=== PATIENT | male | born 1955 | race Caucasian/White ===

== ENCOUNTER 2022-10-28 08:55 | Outpatient (CLI) | payer MEDICARE, SELFPAY | END 2022-10-28 08:56 | disposition home or self-care (01) | LOC: NFLDREF 22:53 | PROVIDERS: PCP Family Medicine; Referring Provider Family Medicine; Visit Provider Family Medicine | DX: U07.1 COVID-19 (principal) | CPT/HCPCS: 80048 ==

== ENCOUNTER 2023-05-26 08:35 | Outpatient (CLI) | payer MEDICARE, SELFPAY ==
--- NOTE | 2023-05-26 10:20 | W.ANESCHARGE ---
Anesthesia Charges Start Date/Time Anesthesia Start Date: 05/26/23 Anesthesia Start Time: 09:35 Stop Date/Time Anesthesia Stop Date: 05/26/23 Anesthesia Stop Time: 10:20
== END 2023-05-26 08:36 | disposition home or self-care (01) ==
LOC: OP CLINIC 08:36
PROVIDERS: PCP Family Medicine; Visit Provider Surgery
DX: Z12.11 Encounter for screening for malignant neoplasm of colon (principal); K57.30 Diverticulosis of large intestine without perforation or abscess without bleeding
CPT/HCPCS: 45378; 812; J2704

== ENCOUNTER 2024-01-31 18:55 | Emergency (ER) | payer MEDICARE, SELFPAY ==
[2024-01-31] VITALS (12 sets, daily range): BP systolic 125–157; BP diastolic 73–96; PULSE 83–90; RESP 20; TEMP 36.3; O2SAT 94–97; BMI 36.6
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
[2024-01-31 19:16] LABS: Basophils Percent Auto 0.6 % (0.0-3.0); Hematocrit 47.5 % (37.0-53.0); Hemoglobin* 15.6 gm/dL (13.5-17.5); Immature Granulocytes Pct Auto 0.3 %; Lymphocytes Percent Auto 46.5 % (20-44); Mean Corpuscular HGB Conc 33 gm/dL (32-36); Mean Corpuscular Hemoglobin 31 pg (26-34); Mean Corpuscular Volume 94 fL (80-100); Monocytes Percent Auto 9.1 % (0.0-11.0); Neutrophils Percent Auto 38.5 % (42.0-72.0); Platelet Count* 218 K/uL (140-440); RDW Coefficient of Variation % 12.7 % (11.5-15.5); Red Blood Count 5.04 m/uL (4.30-5.90); White Blood Count* 12.02 K/uL (4.50-11.00)
[2024-01-31 19:18] LABS: Slide Review Reflex No
[2024-01-31 19:30] LABS: Chloride* 106 mmol/L (96-114)
[2024-01-31 19:31] LABS: Potassium* 4.1 mmol/L (3.6-5.1); Sodium* 138 mmol/L (135-149)
[2024-01-31 19:33] LABS: Creatinine* 1.3 mg/dL (0.5-1.5); Est. Creatinine Clearance* 59.69; Estimated Glomerular Filt Rate 60 ml/min
[2024-01-31 19:34] LABS: Anion Gap 9 mEq/L (7-15); Blood Urea Nitrogen* 22 mg/dL (7-30); Carbon Dioxide* 23 mmol/L (20-32); Glucose* 114 mg/dL (60-115)
[2024-01-31 19:46] LABS: Troponin I* < 0.01 ng/mL (0.01-0.04)
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
--- OUTSIDE RECORDS SUMMARY | 2024-01-31 20:37 | XMS_ITS | Clinical Summary ---
Author Organization [employer] [facility] [employer] [facility] Address [place], [place] [address] Care Team Providers Care Transmission Repairer Name Role Phone Pcp, No Primary Care Provider Unavailabl e Allergies No known active allergies Medications Medication Sig Dispensed Refills Start Date End Date Status MULTIVITAMIN TAB take 1 tablet by oral route once daily with food 0 12/25/2008 Active Active Problems Problem Noted Date Diagnosed Date Hyperplastic colon polyp 04/21/2013 Overview: Colonoscopy 04/2013 polyp repeat in 10 years Immunizations Name Administration Dates Next Due Td (Age >=7 Years) 11/23/1998 Tdap 12/25/2008 Family History Medical History Relation Name Comments Heart Disease Father Good Health Maternal Grandmother brain t umor Cancer-colon Maternal Uncle Other Mother myeloma Heart Disease Paternal Grandmother chf Relation Name Status Comments Father Maternal Grandmother Maternal Uncle Mother Alive Paternal Grandmother Social History Tobacco Use Types Packs/Day Years Used Date Smoking Tobacco: Never Smokeless Tobacco: Never Tobacco Cessation:Counseling Given: Yes Alcohol Use Standard Drinks/Week Comments No 0 (1 standard drink = 0.6 oz pur e alcohol) Sex and Gender Information Value Date Recorded Sex Assigned at Not on file Gender Identity Not on file Sexual Orientation Not on file Obstetrics History Last Filed Vital Signs Vital Sign Reading Time Taken Comments Blood Pressure 115/78 04/19/2013 11:22 AM CDT Pulse 61 04/19/2013 11:22 AM CDT Temperature 36.9 ??C (98.4 ??F) 12/25/2008 8:16 AM CD T Respiratory Rate - - Oxygen Saturation 93% 04/19/2013 11:22 AM CDT Inhaled Oxygen Concentration - - Weight 125.2 kg (276 lb) 03/04/2013 8:35 AM CDT Height 182.9 cm (6') 03/04/2013 8:35 AM CDT Body Mass Index 37.43 03/04/2013 8:35 AM CDT Plan of Treatment Health Maintenance Due Date Last Done Comments Depression screening for age 12+ 1967 BMI (ht and wt on same day) for age 18+ 1973 Hepatitis C screening for age 18-79 1973 Zoster (shingles) series for age 50+ (1 of 2) 2005 Lipids for age 45-75 03/04/2018 03/04/2013, 01/24/20 09 Tetanus booster 12/25/2018 12/25/2008, 11/23/1998 Pneumococcal series for age 65+ (1 of 1 - PCV) 2020 COVID-19 vaccine series ( - 2022-24 season) 2023 Colonoscopy through age 75 04/19/2023 04/19/2013, Influenza for age 65+ 03/20/2024 Tdap Completed 12/25/2008 Procedures Procedure Name Priority Date/Time Associated Diagnosis Comments LIPID PANEL W REFLEX MEASURED LDL Routine 03/04/2013 9:10 AM CDT Screening for ischemic heart disease from Last 3 Months or Most Recently Relevant to Health Maintenance Results * (ABNORMAL) LIPID PANEL W REFLEX MEASURED LDL (03/04/2013 9:10 AM CDT) CHOLESTEROL,TOTAL 220(H) 100 - 199 mg/dL 03/04/2013 9:51 AM T [facility] TRIGLYCERIDES 106 <150 mg/dL 03/04/2013 9:51 AM T [facility] HDL CHOLESTEROL 43 >40 mg/dL 3 9:51 AM T [facility] NON-HDL CHOLESTEROL 177(H) <145 mg/dl 03/04/2013 9:51 AM [facility] CHOL/HDL RATIO 5.12(H) <4.50 03/04/2013 9:51 AM [facility] LDL CHOLESTEROL 156(H) <=130 mg/dL 03/04/2013 9:51 AM CDT [facility] PATIENT STATUS FASTING 03/04/2013 9:51 AM CDT [facility] Blood specimen (specimen) BLOOD SPECIMEN / Unknown Venipuncture / Unknown 03/04/2013 9:10 AM CDT 03/04/2013 9:15 AM CDT Micah Reid MD CHEMISTRY [facility] [address] [place] [address] from Last 3 Months or Most Recently Relevant to Health Maintenance Care Teams Transmission Repairer Relationship Specialty Start Date End Date Pcp, No . PCP - General 12/10/20
== END 2024-01-31 20:47 | disposition home or self-care (01) ==
PROVIDERS: Emergency Provider Family Medicine; PCP Family Medicine
DX: S22.31XA Fracture of one rib, right side, initial encounter for closed fracture (principal); S20.419A Abrasion of unspecified back wall of thorax, initial encounter; V29.39XA Other motorcycle (driver) (passenger) injured in unspecified nontraffic accident, initial encounter; S06.0X1A Concussion with loss of consciousness of 30 minutes or less, initial encounter
CPT/HCPCS: 36415; 70450; 71260; 72125; 72128; 72131; 74177; 80048; 84484; 85025; 93005; 94761; 99284; 99291; G0390; Q9967

== ENCOUNTER 2024-06-02 08:15 | Outpatient (RCR) | payer MEDICARE, SELFPAY ==
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
== END 2024-06-02 14:57 | disposition home or self-care (01) ==
PROVIDERS: PCP Family Medicine; Visit Provider Physician Assistant Surgical
DX: S82.874A Nondisplaced pilon fracture of right tibia, initial encounter for closed fracture (principal); M16.11 Unilateral primary osteoarthritis, right hip; Z96.641 Presence of right artificial hip joint; R53.1 Weakness; R26.89 Other abnormalities of gait and mobility; Z51.89 Encounter for other specified aftercare
CPT/HCPCS: 97110; 97140; 97162

== ENCOUNTER 2024-06-13 08:37 | Day surgery (SDC) | payer MEDICARE, SELFPAY ==
[2024-06-13] VITALS (20 sets, daily range): BP systolic 112–149; BP diastolic 63–84; PULSE 57–71; RESP 12–16; TEMP 35.9–37; O2SAT 91–97; BMI 38.0
[2024-06-13] MEDS: MIDAZOLAM HCL 1 MG/ML inj IVP (07:34)
--- OUTSIDE RECORDS SUMMARY | 2024-06-13 08:41 | XMS_ITS | Clinical Summary ---
Author Organization [employer] [facility] [employer] Address [place], [place] [address] Care Team Providers Care Medical Safety Director Name Role Phone Pcp, No Primary Care Provider Unavailabl e Allergies No known active allergies Medications Medication Sig Dispensed Refills Start Date End Date Status MULTIVITAMIN TAB take 1 tablet by oral route once daily with food 0 12/25/2008 Active Active Problems Problem Noted Date Diagnosed Date Hyperplastic colon polyp 04/21/2013 Overview (04/21/2013): Colonoscopy 04/2013 polyp repeat in 10 years [...] 61 04/19/2013 11:22 AM CDT Temperature 36.9 C (98.4 F) 12/25/2008 8:16 AM CDT Respiratory Rate - - Oxygen Saturation 93% [...] 65+ (1 of 1 - PCV) 2020 Colonoscopy through age 75 04/19/2023 04/19/2013, COVID-19 vaccine series (2023- season) 2024 Influenza for age 65+ 03/20/2024 Tdap Completed [...] - 199 mg/dL 03/04/2013 9:51 AM T [facility] TRIGLYCERIDES 106 <150 mg/dL 03/04/2013 9:51 AM T [facility] HDL CHOLESTEROL 43 >40 mg/dL 3 9:51 AM [facility] NON-HDL CHOLESTEROL 177(H) <145 mg/dl 03/04/2013 9:51 AM [facility] CHOL/HDL RATIO 5.12(H) <4.50 03/04/2013 9:51 AM [facility] LDL CHOLESTEROL 156(H) <=130 mg/dL 03/04/2013 9:51 AM CDT [facility] PATIENT STATUS FASTING 03/04/2013 9:51 AM CDT [facility] Blood specimen (specimen) BLOOD SPECIMEN / Unknown Venipuncture / Unknown 03/04/2013 9:10 AM CDT 03/04/2013 9:15 AM CDT Micah Reid MD CHEMISTRY [facility] [address] [place] [address] from Last 3 Months or Most Recently Relevant to Health Maintenance Care Teams Medical Safety Director Relationship Specialty Start Date End Date Pcp, No . PCP - General 12/10/20
--- NOTE | 2024-06-13 09:10 | W.PM.H&PU ---
History & Physical Update History & Physical Update H&P Reviewed and patient assessed: No changes noted
[2024-06-13] MEDS: ACETAMINOPHEN 500 MG TABLET 1000 MG PO ×3 (09:52→22:15)
[2024-06-13] MEDS: SODIUM CHLORIDE 0.9 % (FLUSH) 10 ML SYRINGE IVF (09:53)
[2024-06-13] MEDS: LACTATED RINGERS 1000 ML 1,000 ML 100 ML IV (09:53)
[2024-06-13] MEDS: OXYCODONE (CR) 10 MG TAB.ER.12H PO (09:53)
[2024-06-13] MEDS: fentaNYL 100 MCG/2 ML inj IVP (10:19)
--- NOTE | 2024-06-13 10:38 | SUR.PREOP ---
TIME?OUT:?1019 PT/RN/MDA?VERIFICATION?OF?SURGICAL?SITE,?PROCEDURE,?AND?CONSENT OBTAINED?PRIOR?TO?INVASIVE?PROCEDURE.
[2024-06-13] MEDS: CEFAZOLIN 2 GM in 0.9 % SODIUM CHLORIDE Mini-bag 100 ML IVPB (10:42)
--- NOTE | 2024-06-13 10:45 | CRLHL7_ITS ---
For Patients: As a result of the Cures Act, medical imaging exams and procedure reports are released immediately into your electronic medical record. You may view this report before your referring provider. If you have questions, please contact your health care provider. Indication: Hip replacement surgery Technique: AP hip fluoroscopic image. Fluoroscopy time 28.6 seconds. Findings/Impression: Hardware from a right total hip arthroplasty is in satisfactory position. Dictated by Micah Glass MD @ 06/14/2024 8:42:41 AM (Electronically Signed)
--- NOTE | 2024-06-13 10:45 | CRLHL7_ITS ---
For Patients: As a result of the Cures Act, medical imaging exams and procedure reports are released immediately into your electronic medical record. You may view this report before your referring provider. If you have questions, please contact your health care provider. Indication: POST OP RIGHT HIP Technique: AP hip centered pelvis and lateral view right hip Findings/Impression: Hardware from a right total hip arthroplasty is in satisfactory position. Bone alignment is normal. No sign of acute fracture. Postop changes are within normal limits. Dictated by Micah Glass MD @ 06/14/2024 8:48:43 AM (Electronically Signed)
[2024-06-13] MEDS: TRANEXAMIC ACID 100 MG/ML INJ 1000 MG IV (10:48)
--- NOTE | 2024-06-13 11:01 | P.NB_ITS ---
Nerve Block Nerve Block Time Seen by Provider: 10:20 Date Seen: 06/13/24 Type of block requested by surgeon for post-operative analgesia: DONA/LFCN Side: right Time out performed: Yes Verification of patient name: Yes Verification of date of : Yes Site marking: site marked Name of person performing procedure: Raz Continuous monitoring Was continuous monitoring of O2 sat, B/P, shelter monitor, recorded every 15 minutes?: Yes Procedure Checklist: sterile prep, needles and gloves Ultrasound guided. Images saved: Yes Medications given in 5ml increments after negative aspiration: Ropivicaine %: 0.5 mL: 30 Needle gauge: 20 Precedex (mcg): 25 Patient tolerated procedure well: Yes Additional comments: Needle noted below psoas tendon needle noted adjacent to LFCN Block Charges Block Charge (with Pro Fee): Other Periph Nerve Block Use of Ultrasound Machine for Block: Yes- US Guidance/pain block
--- NOTE | 2024-06-13 11:02 | W.ANESCHARGE ---
Anesthesia Charges Start Date/Time Anesthesia Start Date: 06/13/24 Anesthesia Start Time: 10:25 Stop Date/Time Anesthesia Stop Date: 06/13/24 Anesthesia Stop Time: 12:57
--- NOTE | 2024-06-13 11:02 | SUR.OPER ---
PATIENT QUESTIONS ANSWERED SATISFACTORILY PREOPERATIVELY. PATIENT BROUGHT TO OR #2 PER CART AFTER ADMINISTRATION OF A BLOCK. Patient positioned supine on OR #2 bed. The perioperative team supported arms bilaterally on arm boards. Final approval of positioning by surgeon.
--- NOTE | 2024-06-13 12:03 | PM.ORPRC ---
Procedure Note Date of procedure: 06/13/24 Procedure: PREOPERATIVE DIAGNOSIS: 1. Right hip osteoarthritis, severe, primary POSTOPERATIVE DIAGNOSIS: 1. Right hip osteoarthritis, severe, primary PROCEDURE: 1. Right total hip arthroplasty-anterior approach 2. [id number] - intraoperative fluoroscopy up to 1 hour. SURGEON: Srinath Boone MD. SPACE CONTROL SUPERVISOR: Jasen Pastor PA-C; LORRAINE Burciaga - Of note, a skilled assistant banquet manager was critical for this case to aid in patient positioning, tissue retraction, limb manipulation/positioning, and closure. ANESTHESIA: General endotracheal anesthetic EBL: 250 mL IMPLANTS: DePuy J&J uncemented total hip [place] cup size 56, hole eliminator, +4 neutral liner Actis stem, high offset, size 9 +1.5 mm ceramic 36 mm head COMPLICATIONS: None evident INDICATIONS: The patient is a pleasant 68-year-old male who has experienced severe right hip pain and difficulty bearing weight. Workup included x-rays which revealed severe osteoarthrosis in the hip. Given the deformity, the dysfunction, and the pain, as well as the failure of nonoperative management, recommendation was made for surgery. FINDINGS: Full-thickness chondral loss diffusely throughout the femoral head and acetabulum. Osteophytes around the femoral head/neck junction and perimeter of the acetabulum. Large effusion upon entering the joint. Capsule was significantly adhesed to the femoral neck. DESCRIPTION OF PROCEDURE: Following a thorough discussion of risks, benefits, and alternatives consent was obtained and the right hip was marked. The patient was brought to the operating room and placed supine on the operating table. Induction of anesthesia was undertaken. 3 g IV Ancef and 1 g tranexamic acid was administered within 1 hr of incision preoperatively. Proper time-out was performed identifying proper patient, site, procedure. The operative extremity was prepped and draped in the appropriate sterile fashion using ChloraPrep after the patient was positioned on the [place] table with head in neutral alignment and all bony prominences well padded. C-arm fluoroscopic imaging was utilized to confirm proper pelvis rotation and position, and to get true AP films of both the contralateral left, and the affected right hip. This is for comparison. A longitudinal incision was made starting approximately 1 cm distal to the ASIS, and 3-4 cm lateral. The incision was extended distally aiming toward the lateral border the patella. Sharp incision through skin and bovie cautery through the subcutaneous tissue allowed identification of the TFL fascia. This was sharply divided, and the fascia bluntly released from the muscle fibers as we dissected medial. Upon coming to the medial border, we were able to retract the TFL laterally, and penetrated the deeper fascia and identify the crossing circumflex vessels. These were ligated/cauterized. The rectus was elevated from the capsule, and retractors placed laterally and medially along the femoral neck to help with visualization of the capsule. We then performed an inverted T capsulotomy. The capsule was tagged for later repair. Retractors were placed inside the capsule. The femoral neck was visualized after releasing medially down to the lesser trochanter, along the saddle laterally, and up onto the acetabulum. The femoral neck cut was made in line with our preoperative templating. The head was removed in a single piece, and sized. We turned our attention to acetabular preparation. Initially, the labrum was resected from around the perimeter, the pulvinar was excised, allowing us to visualize the false wall. We started the reaming with a 43 mm reamer. This was medialized down to the true wall. We then enlarged our reamers sequentially up to one size less than the selected cup size. We trialed at the same size and found it to have an excellent fit. The selected cup was then opened, inserted, and impacted in line with the goal of 40? of abduction, and 20-25? of anteversion. This was confirmed on C-arm fluoroscopic imaging to be in the appropriate/goal position. Once the cup was placed we placed a hole eliminator and a liner consistent with preop planning. Attention was turned to the femoral preparation. The limb was extended, externally rotated, and adducted. The posteromedial capsule was released, as retractors were placed allowing excellent access to the proximal femur. Initially a box blank machine operator helper was followed by canal finder followed by various broaches. We broached sequentially up to the size noted above, found it to have excellent rotational control, and trialing various heads and necks, revealed that appropriate neck offset, and the above noted head size provided the greatest stability, and oriental orthodox of length, and offset. C-arm fluoroscopic imaging confirmed position of the stem, as well as leg lengths, which were compared with the pre procedure all fluoroscopic images. Trial implants were removed, the real femoral stem inserted, as was the appropriate head. After reducing, the leg was placed through range of motion and stability was confirmed anterior, posterior, and lateral. A 3 min Betadine soak was then performed, and thorough irrigation with normal saline followed. Closure of the capsule was performed with #1 PDS. Bleeding was confirmed to be controlled at this stage, and the TFL fascia was closed with #0 strata fix. Subcutaneous, and subcuticular closure was performed with 2-0 Vicryl and 4-0 Monocryl, respectively. Dressings were applied, and the patient was awoken from anesthesia and transferred the PACU in stable condition. A skilled assistant banquet manager was critical for this case to aid in patient positioning, tissue retraction, acetabular and proximal femoral exposure, limb manipulation/positioning, dislocation/relocation, patient safety, and closure. PLAN: 1. Weight bear as tolerated operative extremity. 2. 23 hr perioperative antibiotics. 3. Ice. 4. PT/OT consults for ambulation assistance/mobility education. 5. Social work consult for discharge planning. 6. DVT prophylaxis with at SCDs and Xarelto x5 days followed by aspirin for a total of 1 month..
--- NOTE | 2024-06-13 13:03 | W.ANESCHARGE ---
Anesthesia Charges Start Date/Time Anesthesia Start Date: 06/13/24 Anesthesia Start Time: 10:25 Stop Date/Time Anesthesia Stop Date: 06/13/24 Anesthesia Stop Time: 12:57
[2024-06-13] MEDS: HYDROmorphone 0.5 mg/0.5 ml inj IVP (14:40)
--- NOTE | 2024-06-13 15:43 | P.IMCN_ITS ---
Date of Consult Patient: [facility] Patient Consult date: 06/13/24 Requesting Physician: Orthopedics Primary Care Provider: Louis Dean MD Consult Narrative Reason for consult: hyperlipidemia Narrative: Leland Valenzuela is a 68 year old male with h/o hyperlipidemia and idiopathic peripheral neuropathy who underwent an elective RTHA by Dr. Boone for severe right hip osteoarthritis. His , Liza, is with him and answers for him. He is sleepy, but able to answer when I ask him to. Liza has a lot of questions about his pain control, monitors, his alertness level, etc. Review of Systems Status of ROS: Reports: 6 or more systems reviewed and unremarkable except as noted in History and below PFSH [facility] Medical History (Updated 06/13/24 @ 16:24 by Crystal Rob MD) Closed fracture of distal end of tibia ?S82.309A - Unspecified fracture of lower end of unspecified tibia, initial encounter for closed fracture (ICD-10) Hyperplastic colon polyp (04/21/13) ?K63.5 - Polyp of colon (ICD-10) Erectile dysfunction ?N52.9 - Male erectile dysfunction, unspecified (ICD-10) COVID-19 ?U07.1 - COVID-19 (ICD-10) Obesity ?E66.9 - Obesity, unspecified (ICD-10) Idiopathic peripheral neuropathy ?G60.9 - Hereditary and idiopathic neuropathy, unspecified (ICD-10) Hyperlipidemia ?E78.5 - Hyperlipidemia, unspecified (ICD-10) Surgical History (Updated 06/13/24 @ 16:16 by Crystal Rob MD) S/P total right hip arthroplasty (06/13/24) ?Z96.641 - Presence of right artificial hip joint (ICD-10) History of total right hip replacement (06/13/24) ?Z96.641 - Presence of right artificial hip joint (ICD-10) Social History (Updated 06/13/24 @ 16:18 by Crystal Rob MD) Narrative: , Mary. Retired from [employer], various other employment. Lifelong nonsmoker. Denies EtOH and recreational drugs. What is your current living situation?: I presently have a place to live Problems where you live: no known problems In the past 12 months, utilities in danger of being shut off: no In the past 12 mos, have been you worried that your food would run out before you had money to buy more?: never true In the past 12 mos, the food you bought just didn't last and you didn't have money to buy more?: never true Smoking Status: Never smoker Do you use any of these nicotine containing products: None Second hand tobacco smoke exposure: No How often do you have a drink containing alcohol: never AUDIT-C Alcohol total score: 0 Non-prescribed substance use: denies use Caffeine: Yes (2c/day) How often does anyone, including family, friends and others, physically hurt you : never How often does anyone, including family, friends and others, insult or talk down to you: never How often does anyone, including family, friends and others, threaten you with harm: never How often does anyone, including family, friends and others, scream or curse at you: never service: No Meds Home Medications and Allergies Home Medications ?Medication ?Instructions ?Recorded ?Confirmed ?Type multivitamin (Multiple Vitamins 1 tab PO QDAY 06/19/22 06/13/24 History tablet) simvastatin 40 mg tablet 40 mg PO QDAY 10/27/22 06/13/24 History aspirin 325 mg tablet 650 mg PO Q4-6H PRN 03/08/24 06/13/24 History Allergies Allergy/AdvReac Type Severity Reaction Status Date / Time No Known Drug Allergies Allergy Verified 06/13/24 08:57 Exam Narrative: Exam Narrative: General: No acute distress. Sleepy, easily arousable, oriented x3. HEENT: Normocephalic atraumatic, pupils equally round and reactive to light and accommodation. Oropharynx clear. Mucous membranes are moist. No cervical lymphadenopathy, thyromegaly or carotid bruits. No JVD. Cardiovascular: Regular rate and rhythm. No murmurs, gallops, or rubs. Chest: No increased work of breathing. Clear to auscultation bilaterally. No crackles or wheezes. Abdomen: Bowel sounds present. Soft, nondistended, nontender. No hepatosplenomegaly or masses. Extremities: Right hip bandage is clean, dry, and intact. No edema, no cyanosis or clubbing. Skin: No jaundice, no pallor, no rashes on visible skin. Const: Vital Signs, click to edit/add: Vital Signs - 24 hr 06/13/24 09:15 06/13/24 10:25 06/13/24 12:53 Temperature 98.1 F 97.3 F L Pulse Rate 61 61 62 Respiratory Rate 16 16 12 Blood Pressure 149/79 H 133/84 123/66 Pulse Oximetry 96 96 94 Oxygen Delivery Me thod OxyMask Oxygen Flow Rate 10 Fraction of Inspir ed Oxygen 06/13/24 13:00 06/13/24 13:05 06/13/24 13:10 Temperature 97.4 F L Pulse Rate 60 66 65 Respiratory Rate 14 14 12 Blood Pressure 113/67 115/71 117/74 Pulse Oximetry 95 95 94 Oxygen Delivery Me thod OxyMask OxyMask OxyMask Oxygen Flow Rate 10 10 10 Fraction of Inspir ed Oxygen 06/13/24 13:15 06/13/24 13:20 06/13/24 13:24 Temperature 97.6 F Pulse Rate 66 65 64 Respiratory Rate 16 16 14 Blood Pressure 113/73 114/69 118/64 Pulse Oximetry 94 93 91 Oxygen Delivery Me thod OxyMask Room Air Room Air Oxygen Flow Rate Fraction of Inspir ed Oxygen 6 06/13/24 13:24 06/13/24 13:25 06/13/24 13:45 Temperature 97.6 F 97.4 F L 96.7 F L Pulse Rate 69 69 69 Respiratory Rate 12 14 16 Blood Pressure 118/64 119/68 112/68 Pulse Oximetry 91 93 92 Oxygen Delivery Me thod Room Air Room Air Nasal Cannula Oxygen Flow Rate 2 Fraction of Inspir ed Oxygen 06/13/24 14:00 06/13/24 14:15 06/13/24 14:30 Temperature 98.0 F 98.0 F 98.6 F Pulse Rate 69 69 69 Respiratory Rate 16 14 14 Blood Pressure 122/67 115/68 121/68 Pulse Oximetry 93 91 94 Oxygen Delivery Me thod Nasal Cannula Nasal Cannula Nasal Cannula Oxygen Flow Rate 2 2 2 Fraction of Inspir ed Oxygen Assessment and Plan Assessment and plan (1) S/P total right hip arthroplasty: Problem comment: - 06/13/24 Dr. Boone - routine post op cares - pain control adequate, but patient is very sleepy with mild O2 desaturations into the high 80% on RA while dozing. Suspect underlying undiagnosed ADELE. Will add celecoxib to hopefully allow for use of fewer narcotics. - VTE prophylaxis with low dose rivaroxaban. Status: Acute (2) Osteoarthritis of right hip: Problem comment: Severe, [id number] Status: Chronic (3) Closed fracture of distal end of tibia: Problem comment: - right - 13 weeks post injury, date of injury 01/31/2024 - stable, healed, ongoing remodeling - may complicate therapies due to decreased use and pain Status: Chronic (4) Idiopathic peripheral neuropathy: Problem comment: - may complicate rehab Status: Chronic (5) Hyperlipidemia: Problem comment: - continue statin Status: Chronic
[2024-06-13] MEDS: OXYCODONE 5 MG TABLET PO ×2 (15:50→22:10)
[2024-06-13] MEDS: CEFAZOLIN 3 GM in 0.9 % SODIUM CHLORIDE Mini-bag 100 ML IVPB (15:51)
[2024-06-13] MEDS: ONDANSETRON 2 MG/ML inj 4 MG IVP (17:38)
[2024-06-13] MEDS: SIMVASTATIN 40 MG TABLET PO (17:39)
[2024-06-13] MEDS: SENNOSIDES 1 TAB TABLET 2 TAB PO (20:26)
--- NOTE | 2024-06-13 22:53 | PC.NURSE ---
Shift Note: Pt friendly and cooperative, able to verbalize his needs. He was quite sleepy this afternoon but sat up to eat a meal and converse with the hospitalist during consultation. VS WNL and LS COA, afebrile. Surgical dressing C,D,&I with active ice in place. Pedal pulses intact. Pt did experience a significant wave of nausea resulting in 600cc emesis after changing position to dangle at the edge of the bed. He stated he felt better after the emesis and 4mg Zofran given IVP. He was able to stand at bedside with assistance and void in the urinal. D/t n/v and lightheadedness he did not spend time in the chair or take and extended walk this evening. He was able to ambulate to the with assist x1 at HS and did quite well. Pain is well controlled with Tylenol and 5mg Oxy PRN. Plans to discharge home with his tomorrow.
[2024-06-14] MEDS: CEFAZOLIN 3 GM in 0.9 % SODIUM CHLORIDE Mini-bag 100 ML IVPB (00:14)
[2024-06-14 03:00] VITALS: BP 128/73; PULSE 68; RESP 18; TEMP 36.6; O2SAT 95
[2024-06-14] MEDS: ACETAMINOPHEN 500 MG TABLET 1000 MG PO ×2 (03:57→10:17)
[2024-06-14 06:34] LABS: Eosinophils Percent Auto 0.1 % (0.0-7.0); Hematocrit 43.4 % (37.0-53.0); Hemoglobin* 14.2 gm/dL (13.5-17.5); Immature Granulocytes Pct Auto 0.1 %; Lymphocytes Percent Auto 10.8 % (20-44); Mean Corpuscular HGB Conc 33 gm/dL (32-36); Mean Corpuscular Hemoglobin 31 pg (26-34); Mean Corpuscular Volume 94 fL (80-100); Monocytes Percent Auto 7.2 % (0.0-11.0); Neutrophils Percent Auto 81.8 % (42.0-72.0); Platelet Count* 223 K/uL (140-440); RDW Coefficient of Variation % 13.7 % (11.5-15.5); Red Blood Count 4.64 m/uL (4.30-5.90); White Blood Count* 18.31 K/uL (4.50-11.00)
--- NOTE | 2024-06-14 06:34 | PC.NURSE ---
Shift note: Surgical dressing is C/D/I, moving affected extremity well, pedal pulses strong. Pt rates pain 2/10, he declined Oxycodone, agreed to take Tylenol for discomfort. Ambulating to the bathroom, voiding, passing gas, no c/o nausea, no lightheadedness, no dizziness.
[2024-06-14 06:35] LABS: Slide Review Reflex No
[2024-06-14 06:46] LABS: Sodium* 136 mmol/L (135-149)
[2024-06-14 06:49] LABS: Blood Urea Nitrogen* 25 mg/dL (7-30); Estimated Glomerular Filt Rate 82 ml/min
[2024-06-14 07:00] VITALS: BP 127/68; PULSE 73; RESP 16; RESP 18; TEMP 37.1; O2SAT 97
[2024-06-14] MEDS: SENNOSIDES 1 TAB TABLET 2 TAB PO (08:36)
[2024-06-14] MEDS: RIVAROXABAN 10 MG TABLET PO (08:37)
[2024-06-14] MEDS: CELECOXIB 200 MG CAPSULE PO (08:37)
--- NOTE | 2024-06-14 09:55 | PM.ORPN ---
Subjective Subjective Date Seen: 06/14/24 Principal diagnosis: Status postop day 1, right total hip arthroplasty - anterior approach Interval history: Patient reports doing well. Events yesterday included nausea and vomiting, since resolved. Feels a little loopy today. Pain managed with scheduled and PRN medications, ice. DVT prophylaxis: Approximate, SCDs, walking. Denies fevers, chills, aches, N/V, CP, SOB/HEWITT, or lightheadedness. Ortho Exam Narrative Exam Narrative: -Patient appears comfortable in bed; no apparent acute distress. His is present. -Alert and oriented times 3 -Operative hip moderately swollen; soft tissues supple; no obvious erythema. Ecchymosis minimal. Warmth appropriate -Surgical dressing clean, dry, intact; no obvious drainage, no erythematous streaking peripheral to the bandage -Bilateral calves soft and supple; no significant swelling, edema, tenderness, erythema, discoloration, warmth, or palpable cords -2+ DP/PT pulses, intact dermatomes and myotomes distally (5/5 strength). No numbness about the lateral femoral cutaneous nerve distribution. Const Vital Signs, click to edit/add: Vital Signs - 24 hr 06/13/24 10:25 06/13/24 12:53 06/13/24 13:00 Temperature 97.3 F L Pulse Rate 61 62 60 Pulse Rate [Pulse Oximeter] Respiratory Rate 16 12 14 Blood Pressure 133/84 123/66 113/67 Blood Pressure [Left Arm] Blood Pressure [Right Arm] Pulse Oximetry 96 94 95 Oxygen Delivery Method OxyMask OxyMask Oxygen Flow Rate 10 10 Fraction of Inspired Oxygen 06/13/24 13:05 06/13/24 13:10 06/13/24 13:15 Temperature 97.4 F L Pulse Rate 66 65 66 Pulse Rate [Pulse Oximeter] Respiratory Rate 14 12 16 Blood Pressure 115/71 117/74 113/73 Blood Pressure [Left Arm] Blood Pressure [Right Arm] Pulse Oximetry 95 94 94 Oxygen Delivery Method OxyMask OxyMask OxyMask Oxygen Flow Rate 10 10 Fraction of Inspired Oxygen 6 06/13/24 13:20 06/13/24 13:24 06/13/24 13:24 Temperature 97.6 F 97.6 F Pulse Rate 65 64 69 Pulse Rate [Pulse Oximeter] Respiratory Rate 16 14 12 Blood Pressure 114/69 118/64 118/64 Blood Pressure [Left Arm] Blood Pressure [Right Arm] Pulse Oximetry 93 91 91 Oxygen Delivery Method Room Air Room Air Room Air Oxygen Flow Rate Fraction of Inspired Oxygen 06/13/24 13:25 06/13/24 13:45 06/13/24 14:00 Temperature 97.4 F L 96.7 F L 98.0 F Pulse Rate 69 69 69 Pulse Rate [Pulse Oximeter] Respiratory Rate 14 16 16 Blood Pressure 119/68 112/68 122/67 Blood Pressure [Left Arm] Blood Pressure [Right Arm] Pulse Oximetry 93 92 93 Oxygen Delivery Method Room Air Nasal Cannula Nasal Cannula Oxygen Flow Rate 2 2 Fraction of Inspired Oxygen 06/13/24 14:15 06/13/24 14:30 06/13/24 15:00 Temperature 98.0 F 98.6 F Pulse Rate 69 69 Pulse Rate [Pulse Oximeter] 62 Respiratory Rate 14 14 16 Blood Pressure 115/68 121/68 Blood Pressure [Left Arm] Blood Pressure [Right Arm] Pulse Oximetry 91 94 Oxygen Delivery Method Nasal Cannula Nasal Cannula Oxygen Flow Rate 2 2 Fraction of Inspired Oxygen 06/13/24 15:00 06/13/24 15:00 06/13/24 16:00 Temperature 97.1 F L 97.3 F L Pulse Rate 62 57 L Pulse Rate [Pulse Oximeter] Respiratory Rate 16 16 16 Blood Pressure 113/64 126/71 Blood Pressure [Left Arm] Blood Pressure [Right Arm] Pulse Oximetry 95 95 97 Oxygen Delivery Method Room Air Room Air Room Air Oxygen Flow Rate Fraction of Inspired Oxygen 06/13/24 17:00 06/13/24 18:00 06/13/24 22:13 Temperature 97.5 F L 97.5 F L Pulse Rate 65 71 Pulse Rate [Pulse Oximeter] 65 Respiratory Rate 16 16 16 Blood Pressure 116/63 119/63 Blood Pressure [Left Arm] Blood Pressure [Right Arm] 123/75 Pulse Oximetry 96 93 93 Oxygen Delivery Method Room Air Room Air Room Air Oxygen Flow Rate Fraction of Inspired Oxygen 06/13/24 22:13 06/13/24 23:00 06/14/24 03:00 Temperature 97.9 F Pulse Rate Pulse Rate [Pulse Oximeter] 62 68 Respiratory Rate 16 16 18 Blood Pressure Blood Pressure [Left Arm] Blood Pressure [Right Arm] 128/73 Pulse Oximetry 93 95 Oxygen Delivery Method Room Air Room Air Oxygen Flow Rate Fraction of Inspired Oxygen 06/14/24 07:00 Temperature 98.8 F Pulse Rate Pulse Rate [Pulse Oximeter] 73 Respiratory Rate 18 Blood Pressure Blood Pressure [Left Arm] 127/68 Blood Pressure [Right Arm] Pulse Oximetry 97 Oxygen Delivery Method Room Air Oxygen Flow Rate Fraction of Inspired Oxygen Assessment and Plan Assessment and plan (1) S/P total right hip arthroplasty: Problem details: - 06/13/24 Dr. Boone - routine post op cares - pain control adequate, but patient is very sleepy with mild O2 desaturations into the high 80% on RA while dozing. Suspect underlying undiagnosed ADELE. Will add celecoxib to hopefully allow for use of fewer narcotics. - VTE prophylaxis with low dose rivaroxaban. Status: Acute (2) Osteoarthritis of right hip: Problem details: Severe, [id number] Status: Chronic (3) Closed fracture of distal end of tibia: Problem details: - right - 13 weeks post injury, date of injury 01/31/2024 - stable, healed, ongoing remodeling - may complicate therapies due to decreased use and pain Status: Chronic (4) Idiopathic peripheral neuropathy: Problem details: - may complicate rehab Status: Chronic (5) Hyperlipidemia: Problem details: - continue statin Status: Chronic Plan - Complete 23 hour perioperative antibiotics. - PT/OT consult for education and assistance. - Social work consult for discharge planning - Prescribed analgesics as needed - DVT prophylaxis: Rivaroxaban, walking, and SCDs - Anticipation is for discharge to home with family/friends today 06/14/2024 if the patient remains medically stable, pain is controlled, and they are safe with mobilization.
--- NOTE | 2024-06-14 12:15 | PC.NURSE ---
Discharge: The patient discharged home with his this afternoon.... discharge instructions were reviewed and all questions were answered. All belongings were sent with the patient as well. Azra SOTO BSN
== END 2024-06-14 11:58 | disposition home or self-care (01) ==
LOC: OR 08:39 → MEDSURG 08:42
PROVIDERS: PCP Family Medicine; Visit Provider Orthopaedic Surgery Sports Medicine
PROC: (CPT 27130; principal; 2024-06-13 10:45)
DX: M16.11 Unilateral primary osteoarthritis, right hip (principal); G89.18 Other acute postprocedural pain; E78.5 Hyperlipidemia, unspecified; E66.9 Obesity, unspecified; G60.9 Hereditary and idiopathic neuropathy, unspecified; S82.301D Unspecified fracture of lower end of right tibia, subsequent encounter for closed fracture with routine healing; Z68.38 Body mass index [BMI] 38.0-38.9, adult
CPT/HCPCS: 27130; 01214; 36415; 64450; 73501; 76942; 82565; 84132; 84295; 84520; 85025; 86850; 86900; 86901; 97110; 97116; 97161; 97165; 97530; 97535; A9270; C1776; J0330; J0690; J1100; J1171; J2250; J2405; J2704; J2795; J3010; J3475; J3490; J7120

== ENCOUNTER 2024-08-30 08:20 | Outpatient (CLI) | payer MEDICARE, SELFPAY | END 2024-08-30 08:21 | disposition home or self-care (01) | LOC: NFLDREF 09-03 01:34 | PROVIDERS: PCP Family Medicine; Referring Provider Family Medicine; Visit Provider Family Medicine | DX: E78.5 Hyperlipidemia, unspecified (principal); Z12.5 Encounter for screening for malignant neoplasm of prostate | CPT/HCPCS: 80053; 80061; G0103 ==

== ENCOUNTER 2024-09-07 10:30 | Outpatient (RCR) | payer MEDICARE, SELFPAY ==
--- NOTE | 2024-06-06 14:02 | PT.OPEX ---
PT [place] Outpatient Eval PT [place] Outpatient Eval Start: 06/06/24 11:48 Freq: Status: Active Protocol: Document 06/06/24 11:48 [facility] (Rec: 06/06/24 11:57 [facility] No Response) E-signed By Dejan Nicolas, PT Physical Therapy Outpatient Evaluation Insurance Information Recert Due Date 08/29/24 Insurance Name Medicare B Insurance Information/Comments State [facility] Medical Diagnosis R hip OA M16.11 Treating Diagnosis right hip pain M25.551 right hip stiffness M25.651 muscle weakness M62.81 Difficulty ambulating R26.2 Imaging Report Information x-ray: right hip OA Referring MD Dr. Srinath Boone Subjective Preferred Name Vijay Subjective Vijay attended his pre-op R DEANA PT session along with his girlfriend, Mary. Vijay is coming off of rehab for non- surgical, right tibial fracture, which is now well- healed. He is chronic right hip pain from advanced OA. Vijay is scheduled for R DEANA, anterior approach, 06/13/24. He will have 24 hr support at home, as needed, following surgery. Right hip aggravating factors: ambulation, standing Relieving: rest Pain Comments up to 6/10 at worst Date of Last Physician Visit 05/10/24 Date of Surgery (If applicable) 06/13/24 Current Work Status Retired Precautions Treatment Precautions/Contraindications recently recovering from right tibial fracture, well-healed Weight Bearing Status Weight Bear as Tolerated Therapy Limitations/Systems Review Not Limited Objective Other/Pertinent Objective ROM: Right hip: Flexion 90 deg , Extension to neutral ER 40 deg IR 5 deg Strength: Right LE: hip flexion 4/5, hip extension 4+/ 5, hip abduction 4/5 knee extension: 5/5 flexion: 5/5 Ankle DF: 4+/5 PF 4+/5 Functional Test Performed & Score SLS: R: 3 sec L: 5 sec Ambulation: no AD, significant asymmetric antalgic gait, + Trendelenburg R Stairs: able to perform step to gait pattern w/rail comfortably, confidently reciprocal gait on stairs challenging Assessment Assessment/Impression 68 year old male presents one week pre-op R DEANA. He demos impaired gait and balance and impaired ROM right hip due to advanced OA. He is a good DEANA candidate from PT perspective. His recent recovery from tibial fracture healing will add a layer of impairment to his recovery time/process. He has good family support and appears to be self-motivated. I recommend skilled PT post-op to safely progress in a DEANA rehab program to optimize functional recovery. Primary Functional Limitations ambulation, stairs, balance, prolonged standing Plan of Care Rehabilitation Potential Excellent Physical Therapy Goals Pre-op goal: Patient will be I with s/p DEANA HEP and demo safety w/ ambulation and stairs (step to pattern). Goal met Patient will verbalize understanding of post-op expectations and fall prevention measures. Goal met Post-op goals TBD by PT Coordination/Communication With Referral Source Treatment Plan/Direct Interventions Gait Training,Manual Therapy, Neuromuscular Re-ed,Self-Care/ Home Management,Therapeutic Activities,Therapeutic Exercises Direct Interventions Clarification s/p R DEANA rehab Comments Frequency/Duration 1x pre op anticipate 4-8 visits post-op, TBD by evaluating PT Patient Will Be Discharged From Therapy Independent w/HEP, Independently Progressing Evaluation Billing Untimed Code Treatment Minutes 25 Complexity Low Certification Information Initial Certification Date 06/06/24 Ending Certification Date 08/29/24 Provider Signature Required Yes Provider Signature Shows Agreement With POC & Medical Necessity Physician NPI Number Write NPI# Here Physician Comment/Change : Physician Signature & Date Requested Please Sign/Date Here
--- OUTSIDE RECORDS SUMMARY | 2024-06-30 04:41 | XMS_ITS | Encounter Summary ---
Author Name [facility] [place] Organization [facility] [place] [place] Address [address] [place] [id number] Care Team Providers Care Creative Producer Name Role Phone JEANINE HERNANDEZ Primary Care Provider Unavail able Insurance Providers: All historical and current Section Date Range: From patient's date of to the date document was created. This section includes the names of all active insurance providers for the patient. Insurance Provider Type of Coverage Plan Name Start of Policy Coverage End of Policy Coverage Group Number Member ID Insurance Provider's Telephone Number Policy Joya's Name Patient's Relationship to Policy Joya [facility] (WNR) MEDICARE ADVANTAGE [facility] (WNR) Jun 19, 2020 [id number] LESLEY HUFFMAN PATIENT Selected Encounter This section includes the information on record at [place] for the Encounter. Date/Time Encounter Type Encounter Description Reason Pro vider Source Aug 11, 2023 12:00 AM Outpatient Encounter EVENT (HISTORICAL) IHE Encounter Template Text not used by [place] Plan of Treatment: Future Appointments (+ 6 months) and Future Tests (+/- 45 days) The Plan of Treatment section includes future care activities for the patient from all [place] treatmentfacilities. This section includes future appointments and future orders which are active, pending or scheduled. Future Appointments This section includes appointments that were scheduled to occur 6 months from the date of the Encounter, up to a maximum of 20 appointments. The data comes from all [place] treatment facilities. Appointment Date/Time Appointment Type Appointme nt Facility Name Feb 01, 2024 02:41 PM AMBULATORY - NONE [facility] Lab Results: +/- 30 days of the encounter This section includes the Chemistry and Hematology Lab Results on record with [place] for the patient. Radiology Reports and Pathology Reports are provided separately, in subsequent sections. Lab Results This section contains the Chemistry/Hematology Results that were resulted 30 days before or 30 daysafter the date of the Encounter. Date/Time Source Result Type Result - Unit Interpretation Reference Range Comment Aug 11, 2023 10:11 AM [facility] COMPREHENSIVE METABOLIC PANEL+MG Specimen Type: PLASMA No comment entered. Ordering Provider: WESTLEY HERNANDEZ Report Released Date/Time: Aug 04, 2023 01:06 PM Reporting Lab: [facility] [id number] Performing Lab: [facility] [id number] CREATININE 1.2 mg/dL 0.7-1.2 UREA NITROGEN 23 mg/dL 8-26 GLUCOSE 92 mg/dL 70-100 SODIUM 139 mmol/L 136-145 POTASSIUM 4.6 mmol/L 3.5-5.1 CHLORIDE 106 mmol/L 98-107 CO2 23 mmol/L 22-29 CALCIUM 9.4 mg/dL 8.4-10.2 PROTEIN,TOTAL 7.6 g/dL 6.0-8.3 ALBUMIN 4.2 g/dL 3.5-5.2 BILIRUBIN, TOTAL 0.9 mg/dL 0.2-1.2 MAGNESIUM 2.3 mg/dL 1.6-2.6 ANION GAP 10 mmol/L 5-15 ALKALINE PHOSPHATASE 93 U/L 40-150 ALT/SGPT 36 U/L <55 AST/SGOT 30 U/L <34 .CREAT EGFR(CKD-EPI) 66 >60 Aug 11, 2023 10:11 AM [facility] LIPID PANEL,NON-FASTING Specimen Type: PLASMA No comment entered. Ordering Provider: WESTLEY HERNANDEZ Report Released Date/Time: Aug 04, 2023 01:06 PM Reporting Lab: [facility] [id number] Performing Lab: [facility] [id number] CHOLESTEROL 156 mg/dL <199 .HDL 43 mg/dL >40 LDL CALCULATION 84 mg/dL <99 VLDL CALCULATION 29 mg/dL <29 NON HDL CHOLESTEROL 113 mg/dL <129 TRIG(NON FASTING) 144 mg/dL <149 Vital Signs: All taken on the encounter date This section contains inpatient and outpatient Vital Signs collected on the date of the Encounter. Date/Time Temperature Pulse Blood Pressure Respiratory Rate SP02 Pain Height Weight Body Mass Index Source Aug 11, 2023 01:47 PM 65 /min 131/81 mm[Hg] [facility] Aug 11, 2023 01:39 PM 97.9 F 64 /min 143/72 mm[Hg] 16 /min 95 % 1 72 in 291.3 lb 40 [facility] Social History: Smoking Status (Most current) and Tobacco Use (All prior to encounter date) This section includes the most current, and the historical, smoking and tobacco- related health factors from the [place] facility where the Encounter took place. Current Smoking Status This section includes the most current smoking, or tobacco-related health factor, from the [place] facility where the Encounter took place. Date/Time Current Smoking Status Comment Len davis Aug 11, 2023 02:00 PM [place]-TOBACCO NEVER USED [facility] Tobacco Use History This section includes a history of the smoking, or tobacco-related health factors, that were collected on or before the date of the Encounter. The data comes from the [place] facility where the Encounter took place. Date/Time Smoking Status/Tobacco Use Comment F acility Jul 02, 2022 09:30 AM VA-TOBACCO NEVER USED [facility] Aug 08, 2021 07:45 AM VA-TOBACCO NEVER USED [facility]
--- OUTSIDE RECORDS SUMMARY | 2024-06-30 04:41 | XMS_ITS | Encounter Summary ---
Author Name [facility] [place] Organization [facility] [place] Address [address] [place] [address] Care Team Providers Care Mechanical Oxidizer Name Role Phone JAELYN STYLES Primary Care Provider Unavail able Insurance Providers: [...] Joya's Name Patient's Relationship to Policy Joya [facility] (WNR) MEDICARE ADVANTAGE [facility] (WNR) Jun 19, 2020 [id number] LESLEY HUFFMAN PATIENT Selected Encounter This section includes the information on record at [place] for the Encounter. Date/Time Encounter Type Encounter Description Reason Provider Source Aug 11, 2023 02:00 PM OFFICE O/P EST LOW 20 MIN PRIMARY CARE/MEDICINE ICD-10-CM E78.5 Hyperlipidemia, unspecified ANGELI STYLES IHE Encounter Template Text not used by [place] Assessments - Encounter Diagnoses This section includes the primary and secondary diagnoses documented for the Encounter. Date/Time Primary/Secondary Diagnosis Diagnosis Name Provider Source Aug 11, 2023 02:40 PM PRIMARY Hyperlipidemia, unspecified ANGELI STYLES [facility] Plan of Treatment: Future Appointments (+ 6 months) and Future Tests (+/- 45 days) The Plan of Treatment section includes future care activities for the patient from all [place] treatmentfacilities. This section includes future appointments and future orders which are active, pending or scheduled. Future Appointments This section includes appointments that were scheduled to occur 6 months from the date of the Encounter, up to a maximum of 20 appointments. The data comes from all [place] treatment facilities. Appointment Date/Time Appointment Type Appointme nt Facility Name Feb 01, 2024 02:41 PM [facility] Lab Results: +/- 30 days of the encounter This section includes the Chemistry and Hematology Lab Results on record with [place] for the patient. Radiology Reports and Pathology Reports are provided separately, in subsequent sections. Lab Results This section contains the Chemistry/Hematology Results that were resulted 30 days before or 30 daysafter the date of the Encounter. Date/Time Source Result Type Result - Unit Interpretation Reference Range Comment Aug 11, 2023 10:11 AM [facility] COMPREHENSIVE METABOLIC PANEL+MG Specimen Type: PLASMA No comment entered. Ordering Provider: WESTLEY STYLES Report Released Date/Time: Aug 04, 2023 01:06 PM Reporting Lab: [facility] [id number] Performing Lab: [facility] [phone] CREATININE 1.2 mg/dL 0.7-1.2 UREA NITROGEN 23 [...] 66 >60 Aug 11, 2023 10:11 AM [facility] LIPID PANEL,NON-FASTING Specimen Type: PLASMA No comment entered. Ordering Provider: WESTLEY STYLES Report Released Date/Time: Aug 04, 2023 01:06 PM Reporting Lab: [facility] [phone] Performing Lab: [facility] [phone] CHOLESTEROL 156 mg/dL <199 .HDL 43 mg/dL [...] 2023 01:47 PM 65 /min 131/81 mm[Hg] [facility] Aug 11, 2023 01:39 PM 97.9 F 64 /min 143/72 mm[Hg] 16 /min 95 % 1 72 in 291.3 lb 40 [facility] Social History: Smoking Status (Most current) and Tobacco Use (All prior to encounter date) This section includes the most current, and the historical, smoking and tobacco- related health factors from the [place] facility where the Encounter took place. Current Smoking Status This section includes the most current smoking, or tobacco-related health factor, from the [place] facility where the Encounter took place. Date/Time Current Smoking Status Comment Len davis Aug 11, 2023 02:00 PM [place]-TOBACCO NEVER USED [facility] Tobacco Use History This section includes a history of the smoking, or tobacco-related health factors, that were collected on or before the date of the Encounter. The data comes from the [place] facility where the Encounter took place. Date/Time Smoking Status/Tobacco Use Comment Sandy coffey Jul 02, 2022 09:30 AM [place]-TOBACCO NEVER USED [facility] Aug 08, 2021 07:45 AM VA-TOBACCO NEVER USED [facility] Encounter Notes: All associated encounter notes This section contains the clinical notes associated to the Encounter. Date/Time Encounter Note(s) Provider Source Aug 11, 2023 02:31 PM INTERNAL MEDICINE NOTE: LOCAL TITLE: MEDICINE CLINIC NOTE STANDARD TITLE: INTERNAL MEDICINE NOTE DATE OF NOTE: AUG 11, 2023@14:31 ENTRY DATE: AUG 11, 2023@14:31:15 AUTHOR: JAELYN STYLES COSIGNER: URGENCY: STATUS: COMPLETED Assessment and plan: ----------------------> community-based PCP in [place]- Dr Johnson Obesity -offered [employer] and [facility] rfls -declined today but will call if he wants to pursue Hyperlipidemia -simvastatin 40 mg po qday Health maintenance -CLP at [facility]: 2022 wnl--> rescope in 10 years (2032) -Does not meet criteria for lung cancer screening or AAA screen (nonsmoker) -PSA normal 2021 RTC in one year for repeat annual w/ labs/CMP lipids and PSA prior Nurse's notes reviewed from today. KARMEN HUFFMAN is a 66 year old MALE with the following Chief complaint: annual exam for this delightful 68 yom who is managed in the community. Family history: Father at the age of 80. He had a history of TIAs Mother at 89 from leukemia Paternal grandmother from heart issues. 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 Obesity 2. Hyperlipidemia (SCT 36700689) Allergies: Patient has answered NKA EXAM: VS: Temp: 97.9 F [36.6 C] (08/11/2023 13:39) BP: 131/81 (08/11/2023 13:47) Pulse:65 (08/11/2023 13:47) Resp: 16 (08/11/2023 13:39) Pain: 1 (08/11/2023 13:39) Weight: WEIGHTS IN LAST 6 MONTHS: 291.3 (AUG 11, 2023@13:39:02) General: NAD, Alert Neck: no carotid bruit Lungs: CTAB Heart: RRR Abd: Soft NABS Ext: no edema Gait: stable and independant Data/Labs: GLUCOSE: 92 UREA NITROGEN: 23 CREATININE: 1.2 SODIUM: 139 POTASSIUM: 4.6 CHLORIDE: 106 CO2: 23 CALCIUM: 9.4 CHOLESTEROL: 156 PROTEIN,TOTAL: 7.6 ALBUMIN: 4.2 BILIRUBIN,TOTAL: 0.9 MAGNESIUM: 2.3 HDL: 43 ANION GAP: 10 LDL CHOL: 84 VLDL CHOL: 29 ALKALINE PHOSPHATASE(37C): 93 SGOT(37C): 30 SGPT(37C): 36 NON HDL CHOLESTEROL: 113 TRIG(NON FASTING): 144 CREATININE EGFR (CKD-EPI): 66 (x )Patient was informed of available lab, imaging, and other study results associated with today's visit. Medication Reconciliation: Education Evaluations *Was medication education provided for NEW medications or CHANGES to medications? (including medication name, dose, route, reason for use, and potential side effects). No new medications or medication changes during this encounter. TERATOGENIC MED & CONTRACEPTION REVIEW (Optional)... ======= MEDICATION RECONCILIATION ======= Review Done: The medication list shown below was verified for accuracy and it includes all pending medications/active medications/all medications or discontinued within the last 90 days/all remote medications and non-VA medications. If a given category (i.e. remote meds) is not shown, that means that a patient doesn't have a medication(s) in that category. Allergies listed below were also reviewed/updated for accuracy. Allergies/ADR from [facility] may not display in CPRS. Use JLV MRT5 - Allergies/ADRs FACILITY ALLERGY/ADR -------- No Remote Allergy/ADR Data available for this patient [facility] No Known Allergies Active and Recently Outpatient Medications (including Supplies): Issue Date Status Last Fill Active Outpatient Medications Refills Expiration 1) SIMVASTATIN 40MG TAB Qty: 90 for 90 ACTIVE (S) Issu:11-18-22 days Sig: TAKE ONE TABLET BY MOUTH AT Refills: 0 Last:08-11-23 BEDTIME FOR CHOLESTEROL Expr:11-19-23 Avg Risk Colorectal Cancer Screen: AVERAGE RISK colorectal cancer screening is due based on information available to this clinical reminder Patient has arranged or is choosing to arrange this care independent of and without assistance from this [place]. Time spent with patient, chart review, documentation, and coordination of care: 25 minutes /es/ Jaelyn Styles MD Physician Signed: 08/11/2023 14:40 JAELYN STYLES [facility] Aug 11, 2023 01:41 PM INTERNAL MEDICINE OUTPATIENT NOTE: LOCAL TITLE: MEDICINE CLINIC NURSING NOTE STANDARD TITLE: INTERNAL MEDICINE OUTPATIENT NOTE DATE OF NOTE: AUG 11, 2023@13:41 ENTRY DATE: AUG 11, 2023@13:41:50 AUTHOR: ALYSSIA ALEXANDER EXP COSIGNER: URGENCY: STATUS: COMPLETED TYPE OF VISIT: Appointment Check In Type of appointment: In-person appointment REASON FOR VISIT: annual ALLERGIES: Patient has answered NKA VITAL SIGNS: Blood Pressure: 143/72 (08/11/2023 13:39) Pulse: 64 (08/11/2023 13:39) Respiration: 16 (08/11/2023 13:39) Temperature: 97.9 F [36.6 C] (08/11/2023 13:39) Weight: 291.3 lb [132.13 kg] (08/11/2023 13:39) Height: 72 in [182.9 cm] (08/11/2023 13:39) BMI: 39.6 O2 Sat: 95% (08/11/2023 13:39) Pain: 1 (08/11/2023 13:39) Second blood pressure: 131/81 Pulse: 65 Patient is asymptomatic, provider notified. PAIN SCREEN: Patient is not having significant pain that they wish to discuss with their provider today. MEDICATION Over the Counter/Herbal Medications: The patient states that they take some outside medications and/or herbals. Suicide Screen: C-SSRS Screening [place] Suicide Severity Rating Scale (C-SSRS) screener 1. Over the past month, have you wished you were or wished you could go to sleep and not wake up? No 2. Over the past month, have you had any actual thoughts of killing yourself? No 3. Over the past month, have you been thinking about how you might do this? Response not required due to responses to other questions. 4. Over the past month, have you had these thoughts and had some intention of acting on them? Response not required due to responses to other questions. 5. Over the past month, have you started to work out or worked out the details of how to kill yourself? Response not required due to responses to other questions. 6. If yes, at any time in the past month did you intend to carry out this plan? Response not required due to responses to other questions. 7. In your lifetime, have you ever done anything, started to do anything, or prepared to do anything to end your life (for example, collected pills, obtained a gun, gave away valuables, went to the roof but didn't jump)? No 8. If YES, was this within the past 3 months? Response not required due to responses to other questions. Depression Screening: Perform PHQ-2 A PHQ-2 screen was performed. The score was 0 which is a negative screen for depression. Over the past two weeks, how often have you been bothered by the following problems? 1. Little interest or pleasure in doing things Not at all 2. Feeling down, depressed, or hopeless Not at all Alcohol Use Screen (AUDIT-C): Alcohol Screen: SCREEN FOR ALCOHOL (AUDIT-C) An alcohol screening test (AUDIT-C) was negative (score=0). 1. How often did you have a drink containing alcohol in the past year? Consider a drink to be a 12 ounce can or bottle of regular beer, 8 ounces of malt liquor, a 5 ounce glass of table wine, or a 1.5 ounce shot of liquor (like scotch, gin, or vodka). Never 2. How many drinks containing alcohol did you have on a typical day when you were drinking in the past year? Response not required due to responses to other questions. 3. How often did you have six or more drinks on one occasion in the past year? Response not required due to responses to other questions. Nursing Annual Screening: Fall History Screen During the past 12 months, have you had any falls? Patient reports having had 2 or more falls within the past 12 months. MEDICATIONS: Patient does not have an active prescription for one of the following medications: Antihypertensives, Antidepressants, Antipsychotics, Diuretics, or Opioid Analgesics (Controlled Substance medications used for pain). FALL RISK ADVICE: Fall Risk Advice provided. Handout entitled Fall Prevention At Home reviewed and given to patient and/or significant other. Script Talk Screen Are you able to read your prescription bottles with your glasses, magnifiers or other aids? Yes or patient not taking any prescriptions. Skin Screen Patient reports any current pressure ulcers, a history of pressure ulcers, or a wound from a medical record clerk or Patient is bed-confined or a wheelchair-user or Patient requires assistance to transfer/change position No, Skin Screen is Negative Home Abuse/Violence Screen Is your home free of abuse and violence? Yes [facility] Program Screen Body Mass Index (BMI)= 39.6 [place]: [facility] Specimen Test Name Result Units Ref Range 07/02/2022 10:22 BLOOD !! HEMOGLOBIN A1C 5.3 % 4.0 - 6.0 !! Indicates COMMENTS AVAILABLE...Refer to Interim Lab Report. [place] Hgb A1C: No data available [place] Hgb A1C: No data available Point of Care Hgb A1C: POC HGB A1C____ [facility] Weight Management brochure given to Grant and discussed. The counseling includes discussion of the health effects of being overweight/obese, description of the [facility] Weight [facility] treatment program and contact number for [facility] Program. No Outpatient Nutrition Screen Body Mass Index (BMI)= 39.6 [place]: [facility] Specimen Test Name Result Units Ref Range 07/02/2022 10:22 BLOOD !! HEMOGLOBIN A1C 5.3 % 4.0 - 6.0 !! Indicates COMMENTS AVAILABLE...Refer to Interim Lab Report. [place] Hgb A1C: No data available [place] Hgb A1C: No data available Point of Care Hgb A1C: POC HGB A1C____ Is patient's BMI less than 18.5? No Does patient have swallowing, coughing, or chewing problems affecting oral intake? No Has patient experienced unplanned weight loss or gain greater than 10 pounds over the last 2 months? No Is patient's Hgb A1C (Glycosylated Hemoglobin) greater than 9.5? No Is patient receiving Total Parenteral Nutrition (TPN) or Tube Feedings? No Patient Health Education Screen BARRIERS/SPECIAL NEEDS: Physical limitations Hearing limitations Visual limitations PREFERRED STYLE OF LEARNING: Watching something Client Assistive Service (RADHA) Screen Does the patient require assistance with outpatient visit? No Tobacco Use Screening: The patient has never used tobacco. Homelessness/Food Insecurity Screen: In the past 2 months, have you been living in stable housing that you own, rent, or stay in as part of a household? Yes - Living in stable housing. Are you worried or concerned that in the next 2 months you may NOT have stable housing that you own, rent, or stay in as part of a household? No - Not worried about housing near future The reports the following: Within the past 12 months, you worried whether your food would run out before you got money to buy more. Never true Within the past 12 months, the food you bought just didn't last and you didn't have money to get more. Never true Food Insecurity Resources not needed /es/ ALYSSIA ALEXANDER LPN Signed: 08/11/2023 13:46 ALYSSIA ALEXANDER [facility]
--- OUTSIDE RECORDS SUMMARY | 2024-07-06 10:58 | XMS_ITS | Encounter Summary ---
Author Name [facility] [place] Organization [facility] [place] Address [address] [place] [address] Care Team Providers Care Hospitality Specialist Name Role Phone JAELYN STYLES Primary Care [...] Policy Joya's Name Patient's Relationship to Policy Joay [facility] (WNR) MEDICARE ADVANTAGE [facility] (WNR) Jun 19, 2020 [id number] LESLEY HUFFMAN PATIENT Selected Encounter This section includes the information on record at [place] for the Encounter. Date/Time Encounter Type Encounter Description Reason Provider Source Aug 11, 2023 02:00 PM OFFICE O/P EST LOW 20 MIN PRIMARY CARE/MEDICINE ICD-10-CM E78.5 Hyperlipidemia, unspecified ANGELI STYLES IHE Encounter Template Text not used by [place] Assessments - Encounter Diagnoses This section includes the primary and secondary diagnoses documented for the Encounter. Date/Time Primary/Secondary Diagnosis Diagnosis Name Provider Source Aug 11, 2023 02:40 PM PRIMARY Hyperlipidemia, unspecified ANGELI STYLES [facility] Plan of Treatment: Future Appointments (+ 6 months) and Future Tests (+/- 45 days) The Plan of Treatment section includes future care activities for the patient from all [place] treatmentfacilities. This section includes future appointments and future orders which are active, pending or scheduled. Future Appointments This section includes appointments that were scheduled to occur 6 months from the date of the Encounter, up to a maximum of 20 appointments. The data comes from all [place] treatment facilities. Appointment Date/Time Appointment Type Appointme nt Facility Name Feb 01, 2024 02:41 PM [facility] Lab Results: +/- 30 days of the encounter This section includes the Chemistry and Hematology Lab Results on record with [place] for the patient. Radiology Reports and Pathology Reports are provided separately, in subsequent sections. Lab Results This section contains the Chemistry/Hematology Results that were resulted 30 days before or 30 daysafter the date of the Encounter. Date/Time Source Result Type Result - Unit Interpretation Reference Range Comment Aug 11, 2023 10:11 AM [facility] COMPREHENSIVE METABOLIC PANEL+MG Specimen Type: PLASMA No comment entered. Ordering Provider: WESTLEY STYLES Report Released Date/Time: Aug 04, 2023 01:06 PM Reporting Lab: [facility] [phone] Performing Lab: [facility] [address] CREATININE 1.2 mg/dL 0.7-1.2 UREA NITROGEN 23 [...] 66 >60 Aug 11, 2023 10:11 AM [facility] LIPID PANEL,NON-FASTING Specimen Type: PLASMA No comment entered. Ordering Provider: WESTLEY STYLES Report Released Date/Time: Aug 04, 2023 01:06 PM Reporting Lab: [facility] [address] Performing Lab: [facility] [address] CHOLESTEROL 156 mg/dL <199 .HDL 43 mg/dL [...] 2023 01:47 PM 65 /min 131/81 mm[Hg] [facility] Aug 11, 2023 01:39 PM 97.9 F 64 /min 143/72 mm[Hg] 16 /min 95 % 1 72 in 291.3 lb 40 [facility] Social History: Smoking Status (Most current) and Tobacco Use (All prior to encounter date) This section includes the most current, and the historical, smoking and tobacco- related health factors from the [place] facility where the Encounter took place. Current Smoking Status This section includes the most current smoking, or tobacco-related health factor, from the [place] facility where the Encounter took place. Date/Time Current Smoking Status Comment Len davis Aug 11, 2023 02:00 PM [place]-TOBACCO NEVER USED [facility] Tobacco Use History This section includes a history of the smoking, or tobacco-related health factors, that were collected on or before the date of the Encounter. The data comes from the [place] facility where the Encounter took place. 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 Obesity 2. Hyperlipidemia (SCT 39114612) Allergies: Patient has answered NKA EXAM: VS: [...] were also reviewed/updated for accuracy. Allergies/ADR from [facility] may not display in CPRS. Use JLV MRT5 - Allergies/ADRs FACILITY ALLERGY/ADR -------- No Remote Allergy/ADR Data available for this patient [facility] No Known Allergies Active and Recently Outpatient [...] independent of and without assistance from this [place]. Time spent with patient, chart review, documentation, and coordination of care: 25 minutes /es/ Jaelyn Styles MD Physician Signed: 08/11/2023 14:40 JAELYN STYLES [facility] Aug 11, 2023 01:41 PM INTERNAL MEDICINE [...] medications and/or herbals. Suicide Screen: C-SSRS Screening [place] Suicide Severity Rating Scale (C-SSRS) screener 1. [...] pressure ulcers, or a wound from a bacteriologist medical or Patient is bed-confined or a wheelchair-user or Patient requires assistance to transfer/change position No, Skin Screen is Negative Home Abuse/Violence Screen Is your home free of abuse and violence? Yes [facility] Program Screen Body Mass Index (BMI)= 39.6 [place]: [facility] Specimen Test Name Result Units Ref Range 07/02/2022 10:22 BLOOD !! HEMOGLOBIN A1C 5.3 % 4.0 - 6.0 !! Indicates COMMENTS AVAILABLE...Refer to Interim Lab Report. [place] Hgb A1C: No data available [place] Hgb A1C: No data available Point of Care Hgb A1C: POC HGB A1C____ [facility] Weight Management brochure given to [place] and discussed. The counseling includes discussion of the health effects of being overweight/obese, description of the [facility] Weight [facility] treatment program and contact number for [facility] Weight [facility] Program. No Outpatient Nutrition Screen Body Mass Index (BMI)= 39.6 [place]: Collection [facility] Specimen Test Name Result Units Ref Range 07/02/2022 10:22 BLOOD !! HEMOGLOBIN A1C 5.3 % 4.0 - 6.0 !! Indicates COMMENTS AVAILABLE...Refer to Interim Lab Report. [place] Hgb A1C: No data available [place] Hgb A1C: No data available Point of [...] ALEXANDER LPN Signed: 08/11/2023 13:46 ALYSSIA ALEXANDER [facility]
--- OUTSIDE RECORDS SUMMARY | 2024-07-06 10:58 | XMS_ITS | Continuity of Care Document ---
Author Name [facility] Organization [facility] Care Team Providers Care Hospitality Associate Name Role Phone [facility] Unavailable Unavailable Problems Combined list of problems from Department [facility] and [facility] facilities. It does not include entries that were removed or entered in error. Problem Status Onset Date Problem Type Date of Resolution Comments Source Hyperlipidemia ([facility] [id number]) Active Condition [facility] Obesity Active Condition [facility] Diagnosis: ICD-10-CM E78.5 Hyperlipidemia, unspecified Active Diagnosis [facility] Medications Combined list of outpatient medications from [facility] and [facility] facilities.Medications provided include 1) outpatient medications from the last 15 months, and 2) patient-reported medications. Medication Details Route Status Patient Instructions Prescription Expires Prescription Number Last Dispense Date Ordering Provider Order Date Order Qty Source SIMVASTATIN 40MG TAB TAKE ONE TABLET BY MOUTH AT BEDTIME FOR CHOLESTE ROL ORAL ACTIVE 12/01/2024 [id number] JEANINE HERNANDEZ 2023 90 [facility] SIMVASTATIN 40MG TAB TAKE ONE TABLET BY MOUTH AT BEDTIME FOR CHOLESTE ROL ORAL DISCONT INUED 11/19/2023 [id number] JEANINE HERNANDEZ 2022 90 [facility] Immunizations Combined list of available immunizations from the [facility] and [facility] facilities. 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 Selector Status Comments Source COVID-19 (MODERNA), MRNA, LNP-S, PF, 50 MCG/0.5 ML (AGES 12+ YEARS) 2022 312 complet ed [facility] INFLUENZA, HIGH-DOSE, QUADRIVALENT 2022 197 complet ed [facility] COVID-19 (MODERNA), MRNA, LNP-S, BIVALENT, PF, 50 MCG/0.5 ML OR 25MCG/0.25 ML DOSE 2022 229 complet ed [facility] TDAP 2022 [place] NYJOSE J LEFT DELTO ID [id number] 115 complet ed [facility] PNEUMOCOCCAL CONJUGATE PCV20, POLYSACCHARID E [id number] CONJUGATE, ADJUVANT, PF 2022 216 complet ed [facility] INFLUENZA, INJECTABLE, QUADRIVALENT, PRESERVATIVE FREE 2021 150 complet ed [facility] COVID-19 (MODERNA), MRNA, LNP-S, BIVALENT BOOSTER, PF, 50 MCG/0.5 ML OR 25MCG/0.25 ML DOSE 2021 229 complet ed [facility] ZOSTER RECOMBINANT 2 2021 187 complet ed [facility] COVID-19 (MODERNA), MRNA, LNP-S, PF, 100 MCG/0.5ML DOSE OR 50 MCG/0.25ML DOSE 4 2021 207 complet ed [facility] ZOSTER RECOMBINANT 1 2021 187 complet ed [facility] COVID-19 (MODERNA), MRNA, LNP-S, PF, 100 MCG OR 50 MCG DOSE 3 2020 207 complet ed [facility] COVID-19 (MODERNA), MRNA, LNP-S, PF, 100 MCG/0.5 ML DOSE 2 2020 207 complet ed [facility] COVID-19 (MODERNA), MRNA, LNP-S, PF, 100 MCG/0.5 ML DOSE 1 2020 207 complet ed [facility] TDAP 2008 115 complet ed [facility] Results Combined list of recent chemistry, hematology and other laboratory results from [facility] and [facility], ranging from 15 months to all on record, depending upon the facility. Order Name Results Value Reference Range Date Interpretation Specimen Comments Source COMPREHEN SIVE METABOLIC PANEL+MG CREATININE [MASS/VOLUM E] IN SERUM OR PLASMA 1.2 mg/dL 0.7 - 1.2 08/11 Specimen Type: PLASMA No comment entered. Ordering Provider: Zbigniew HERNANDEZ Report Released Date/Time: Aug 04, 2023 01:06 PM Reporting Lab: [facility] [address] Performing Lab: [facility] [address] [place] [facility] COMPREHEN SIVE METABOLIC PANEL+MG UREA NITROGEN [MASS/VOLUM E] IN SERUM OR PLASMA 23 mg/dL 8 - 26 08/11 Specimen Type: PLASMA No comment entered. Ordering Provider: Zbigniew HERNANDEZ Report Released Date/Time: Aug 04, 2023 01:06 PM Reporting Lab: [facility] [address] Performing Lab: [facility] [address] [place] [facility] COMPREHEN SIVE METABOLIC PANEL+MG GLUCOSE [MASS/VOLUM E] IN SERUM OR PLASMA 92 mg/dL 70 - 100 08/11 Specimen Type: PLASMA No comment entered. Ordering Provider: Zbigniew HERNANDEZ Report Released Date/Time: Aug 04, 2023 01:06 PM Reporting Lab: [facility] [address] Performing Lab: [facility] [address] [place] [facility] COMPREHEN SIVE METABOLIC PANEL+MG SODIUM [MOLES/VOLU ME] IN SERUM OR PLASMA 139 mmol/L 136 - 145 08/11 Specimen Type: PLASMA No comment entered. Ordering Provider: Zbginiew HERNANDEZ Report Released Date/Time: Aug 04, 2023 01:06 PM Reporting Lab: [facility] [address] Performing Lab: [facility] [address] [place] [facility] COMPREHEN SIVE METABOLIC PANEL+MG POTASSIUM [MOLES/VOLU ME] IN SERUM OR PLASMA 4.6 mmol/L 3.5 - 5.1 08/11 Specimen Type: PLASMA No comment entered. Ordering Provider: Zbigniew HERNANDEZ Report Released Date/Time: Aug 04, 2023 01:06 PM Reporting Lab: [facility] [address] Performing Lab: [facility] [address] [place] [facility] COMPREHEN SIVE METABOLIC PANEL+MG CHLORIDE [MOLES/VOLU ME] IN SERUM OR PLASMA 106 mmol/L 98 - 107 08/11 Specimen Type: PLASMA No comment entered. Ordering Provider: Zbigniew HERNANDEZ Report Released Date/Time: Aug 04, 2023 01:06 PM Reporting Lab: [facility] [address] Performing Lab: [facility] [address] [place] [facility] COMPREHEN SIVE METABOLIC PANEL+MG CARBON DIOXIDE, TOTAL [MOLES/VOLU ME] IN SERUM OR PLASMA 23 mmol/L 22 - 29 08/11 Specimen Type: PLASMA No comment entered. Ordering Provider: Zbigniew HERNANDEZ Report Released Date/Time: Aug 04, 2023 01:06 PM Reporting Lab: [facility] [address] Performing Lab: [facility] [address] [place] [facility] COMPREHEN SIVE METABOLIC PANEL+MG CALCIUM [MASS/VOLUM E] IN SERUM OR PLASMA 9.4 mg/dL 8.4 - 10.2 08/11 Specimen Type: PLASMA No comment entered. Ordering Provider: Zbigniew HERNANDEZ Report Released Date/Time: Aug 04, 2023 01:06 PM Reporting Lab: [facility] [address] Performing Lab: [facility] [address] [place] [facility] COMPREHEN SIVE METABOLIC PANEL+MG PROTEIN [MASS/VOLUM E] IN SERUM OR PLASMA 7.6 g/dL 6.0 - 8.3 08/11 Specimen Type: PLASMA No comment entered. Ordering Provider: Zbigniew HERNANDEZ Report Released Date/Time: Aug 04, 2023 01:06 PM Reporting Lab: [facility] [address] Performing Lab: [facility] [address] [place] [facility] COMPREHEN SIVE METABOLIC PANEL+MG ALBUMIN [MASS/VOLUM E] IN SERUM OR PLASMA 4.2 g/dL 3.5 - 5.2 08/11 Specimen Type: PLASMA No comment entered. Ordering Provider: Zbigniew HERNANDEZ Report Released Date/Time: Aug 04, 2023 01:06 PM Reporting Lab: [facility] [address] Performing Lab: [facility] [address] [place] [facility] COMPREHEN SIVE METABOLIC PANEL+MG BILIRUBIN.T OTAL [MASS/VOLUM E] IN SERUM OR PLASMA 0.9 mg/dL 0.2 - 1.2 08/11 Specimen Type: PLASMA No comment entered. Ordering Provider: Zbigniew HERNANDEZ Report Released Date/Time: Aug 04, 2023 01:06 PM Reporting Lab: [facility] [phone] Performing Lab: [facility] [address] [place] [facility] COMPREHEN SIVE METABOLIC PANEL+MG MAGNESIUM [MASS/VOLUM E] IN SERUM OR PLASMA 2.3 mg/dL 1.6 - 2.6 08/11 Specimen Type: PLASMA No comment entered. Ordering Provider: Zbigniew HERNANDEZ Report Released Date/Time: Aug 04, 2023 01:06 PM Reporting Lab: [facility] [address] Performing Lab: [facility] [address] [place] [facility] COMPREHEN SIVE METABOLIC PANEL+MG ANION GAP IN SERUM OR PLASMA 10 mmol/L 5 - 15 08/11 Specimen Type: PLASMA No comment entered. Ordering Provider: Zbigniew HERNANDEZ Report Released Date/Time: Aug 04, 2023 01:06 PM Reporting Lab: [facility] [address] Performing Lab: [facility] [address] [place] [facility] COMPREHEN SIVE METABOLIC PANEL+MG ALKALINE PHOSPHATASE [ENZYMATIC ACTIVITY/VO LUME] IN SERUM OR PLASMA 93 U/L 40 - 150 08/11 Specimen Type: PLASMA No comment entered. Ordering Provider: Zbigniew HERNANDEZ Report Released Date/Time: Aug 04, 2023 01:06 PM Reporting Lab: [facility] [address] Performing Lab: [facility] [address] [place] [facility] COMPREHEN SIVE METABOLIC PANEL+MG ALANINE AMINOTRANSF ERASE [ENZYMATIC ACTIVITY/VO LUME] IN SERUM OR PLASMA 36 U/L <55 - 55 08/11 Specimen Type: PLASMA No comment entered. Ordering Provider: Zbigniew HERNANDEZ Report Released Date/Time: Aug 04, 2023 01:06 PM Reporting Lab: [facility] [address] Performing Lab: [facility] [address] [place] [facility] COMPREHEN SIVE METABOLIC PANEL+MG ASPARTATE AMINOTRANSF ERASE [ENZYMATIC ACTIVITY/VO LUME] IN SERUM OR PLASMA 30 U/L <34 - 34 08/11 Specimen Type: PLASMA No comment entered. Ordering Provider: Zbigniew HERNANDEZ Report Released Date/Time: Aug 04, 2023 01:06 PM Reporting Lab: [facility] [address] Performing Lab: [facility] [address] [place] [facility] COMPREHEN SIVE METABOLIC PANEL+MG GLOMERULAR FILTRATION RATE/1.73 SQ M.PREDICTED [VOLUME RATE/AREA] IN SERUM, PLASMA OR BLOOD BY CREATININE- BASED FORMULA (CKD-EPI 2020) 66 60 08/11 Specimen Type: PLASMA No comment entered. Ordering Provider: Zbigniew HERNANDEZ Report Released Date/Time: Aug 04, 2023 01:06 PM Reporting Lab: [facility] [address] Performing Lab: [facility] [address] [place] [facility] LIPID PANEL,NON -FASTING CHOLESTEROL [MASS/VOLUM E] IN SERUM OR PLASMA 156 mg/dL <199 - 199 08/11 Specimen Type: PLASMA No comment entered. Ordering Provider: Zbigniew HERNANDEZ Report Released Date/Time: Aug 04, 2023 01:06 PM Reporting Lab: [facility] [address] Performing Lab: [facility] [address] [place] [facility] LIPID PANEL,NON -FASTING CHOLESTEROL IN HDL [MASS/VOLUM E] IN SERUM OR PLASMA 43 mg/dL 40 08/11 Specimen Type: PLASMA No comment entered. Ordering Provider: Zbigniew HERNANDEZ Report Released Date/Time: Aug 04, 2023 01:06 PM Reporting Lab: [facility] [phone] Performing Lab: [facility] [address] [place] [facility] LIPID PANEL,NON -FASTING CHOLESTEROL IN LDL [MASS/VOLUM E] IN SERUM OR PLASMA BY CALCULATION 84 mg/dL <99 - 99 08/11 Specimen Type: PLASMA No comment entered. Ordering Provider: Zbigniew HERNANDEZ Report Released Date/Time: Aug 04, 2023 01:06 PM Reporting Lab: [facility] [address] Performing Lab: [facility] [address] [place] [facility] LIPID PANEL,NON -FASTING CHOLESTEROL IN VLDL [MASS/VOLUM E] IN SERUM OR PLASMA BY CALCULATION 29 mg/dL <29 - 29 08/11 Specimen Type: PLASMA No comment entered. Ordering Provider: Zbigniew HERNANDEZ Report Released Date/Time: Aug 04, 2023 01:06 PM Reporting Lab: [facility] [address] Performing Lab: [facility] [address] [place] [facility] LIPID PANEL,NON -FASTING CHOLESTEROL NON HDL [MASS/VOLUM E] IN SERUM OR PLASMA 113 mg/dL <129 - 129 08/11 Specimen Type: PLASMA No comment entered. Ordering Provider: Zbigniew HERNANDEZ Report Released Date/Time: Aug 04, 2023 01:06 PM Reporting Lab: [facility] [address] Performing Lab: [facility] [address] [place] [facility] LIPID PANEL,NON -FASTING TRIGLYCERID E [MASS/VOLUM E] IN SERUM OR PLASMA 144 mg/dL <149 - 149 08/11 Specimen Type: PLASMA No comment entered. 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 Vital Sign Value Date Comments Source SYSTOLIC BLOOD PRESSURE 143 08/11/2023 13:39:02 [facility] DIASTOLIC BLOOD PRESSURE 72 08/11/2023 13:39:02 [facility] PULSE OXIMETRY 95% 08/11/2023 13:39:02 [facility] WEIGHT 291.3 08/11/2023 13:39:02 [facility] BMI 40kg/m2 08/11/2023 13:39:02 [facility] PAIN 1 08/11/2023 13:39:02 [facility] HEIGHT 72 08/11/2023 13:39:02 [facility] TEMPERATURE 97.9 08/11/2023 13:39:02 [facility] PULSE 64 08/11/2023 13:39:02 [facility] RESPIRATION 16 08/11/2023 13:39:02 [facility] Encounters Combined list of: 1) Encounters from 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 2) Encounters from the Department of [employer] facilities going back up to 280 months. Location Location Details Encounter Type Encounter Number Reason For Visit Attending Provider ADM Date DC Date Status Dis[facility] Outpatient Encounter [id number] 02/18 [facility] [place] [facility] Outpatient Encounter [id number] 04/27 [facility] [place] [facility] Outpatient Encounter [id number] 06/29 [facility] [place] [facility] Outpatient Encounter [id number] 08/11 [facility] [place] [facility] OFFICE O/P EST LOW 20 MIN [id number] Diagnos is: ICD-10- CM E78.5 Hyperli pidemia , unspeci fied
JEANINE HERNANDEZ 08/11 [facility] [place] [facility] Outpatient Encounter [id number] Rosas NUNEZ 01/31 [facility] Social History Combined list of available smoking, tobacco, and other social history from Department of Defense and Veterans Affairs facilities. Social History Type Response Date Comment Sour e Tobacco smoking status NJIS [facility] NEVER USED 08/11/2023 [facility] History of tobacco use [facility] NEVER USED 07/02/2022 [facility] History of tobacco use [facility] NEVER USED 08/08/2021 [facility]
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
--- OUTSIDE RECORDS SUMMARY | 2024-07-06 10:59 | XMS_ITS | Encounter Summary ---
Author Name [facility] [place] Organization [facility] [place] Address [address] [place] [id number] Care Team Providers Care Shuttlecock Assembler Name Role Phone JEANINE HERNANDEZ Primary Care [...] Joya's Name Patient's Relationship to Policy Joya [facility] (WNR) MEDICARE ADVANTAGE [facility] (WNR) Jun 19, 2020 [id number] LESLEY HUFFMAN PATIENT Selected Encounter This section includes the information on record at [place] for the Encounter. Date/Time Encounter Type Encounter Description Reason Pro vider Source Aug 11, 2023 12:00 AM Outpatient Encounter EVENT (HISTORICAL) IHE Encounter Template Text not used by [place] Plan of Treatment: Future Appointments (+ 6 months) and Future Tests (+/- 45 days) The Plan of Treatment section includes future care activities for the patient from all [place] treatmentfacilities. This section includes future appointments and future orders which are active, pending or scheduled. Future Appointments This section includes appointments that were scheduled to occur 6 months from the date of the Encounter, up to a maximum of 20 appointments. The data comes from all [place] treatment facilities. Appointment Date/Time Appointment Type Appointme nt Facility Name Feb 01, 2024 02:41 PM AMBULATORY - NONE [facility] Lab Results: +/- 30 days of the encounter This section includes the Chemistry and Hematology Lab Results on record with [place] for the patient. Radiology Reports and Pathology Reports are provided separately, in subsequent sections. Lab Results This section contains the Chemistry/Hematology Results that were resulted 30 days before or 30 daysafter the date of the Encounter. Date/Time Source Result Type Result - Unit Interpretation Reference Range Comment Aug 11, 2023 10:[address] [facility] COMPREHENSIVE METABOLIC PANEL+MG Specimen Type: PLASMA No comment entered. Ordering Provider: WESTLEY HERNANDEZ Report Released Date/Time: Aug 04, 2023 01:06 PM Reporting Lab: [facility] [id number] Performing Lab: [facility] [id number] CREATININE 1.2 mg/dL 0.7-1.2 UREA NITROGEN 23 [...] 66 >60 Aug 11, 2023 10:[address] [facility] LIPID PANEL,NON-FASTING Specimen Type: PLASMA No comment entered. Ordering Provider: WESTLEY HERNANDEZ Report Released Date/Time: Aug 04, 2023 01:06 PM Reporting Lab: [facility] [id number] Performing Lab: [facility] [id number] CHOLESTEROL 156 mg/dL <199 .HDL 43 mg/dL [...] 2023 01:47 PM 65 /min 131/81 mm[Hg] [facility] Aug 11, 2023 01:39 PM 97.9 F 64 /min 143/72 mm[Hg] 16 /min 95 % 1 72 in 291.3 lb 40 [facility] Social History: Smoking Status (Most current) and Tobacco Use (All prior to encounter date) This section includes the most current, and the historical, smoking and tobacco- related health factors from the [place] facility where the Encounter took place. Current Smoking Status This section includes the most current smoking, or tobacco-related health factor, from the [place] facility where the Encounter took place. Date/Time Current Smoking Status Comment Len davis Aug 11, 2023 02:00 PM VA-TOBACCO NEVER USED [facility] Tobacco Use History This section includes a history of the smoking, or tobacco-related health factors, that were collected on or before the date of the Encounter. The data comes from the [place] facility where the Encounter took place. Date/Time Smoking Status/Tobacco Use Comment F acility Jul 02, 2022 09:30 AM VA-TOBACCO NEVER USED [facility] Aug 08, 2021 07:45 AM VA-TOBACCO NEVER USED [facility]
--- OUTSIDE RECORDS SUMMARY | 2024-07-11 09:36 | XMS_ITS | Continuity of Care Document ---
Author Name [facility] Organization [facility] Care Team Providers Care Music Therapist Name Role Phone [facility] Unavailable Unavailable Problems Combined list of problems from Department [facility] and [facility] facilities. It does not include entries that were removed or entered in error. Problem Status Onset Date Problem Type Date of Resolution Comments Source Hyperlipidemia ([facility] [id number]) Active Condition [facility] Obesity Active Condition [facility] Diagnosis: ICD-10-CM E78.5 Hyperlipidemia, unspecified Active Diagnosis [facility] Medications Combined list of outpatient medications from [facility] and [facility] facilities.Medications provided include 1) outpatient medications from the last 15 months, and 2) patient-reported medications. Medication Details Route Status Patient Instructions Prescription Expires Prescription Number Last Dispense Date Ordering Provider Order Date Order Qty Source SIMVASTATIN 40MG TAB TAKE ONE TABLET BY MOUTH AT BEDTIME FOR CHOLESTE ROL ORAL ACTIVE 12/01/2024 [id number] JEANINE HERNANDEZ 2023 90 [facility] SIMVASTATIN 40MG TAB TAKE ONE TABLET BY MOUTH AT BEDTIME FOR CHOLESTE ROL ORAL DISCONT INUED 11/19/2023 [id number] JEANINE HERNANDEZ 2022 90 [facility] Immunizations Combined list of available immunizations from the [facility] and [facility] facilities. Immunization Series Date Given Administered By Site Reaction Lot Number CVX Code Drug Glass Bender Status Comments Source COVID-19 (MODERNA), MRNA, LNP-S, PF, 50 MCG/0.5 ML (AGES 12+ YEARS) 2022 312 complet ed [facility] INFLUENZA, HIGH-DOSE, QUADRIVALENT 2022 197 complet ed [facility] COVID-19 (MODERNA), MRNA, LNP-S, BIVALENT, PF, 50 MCG/0.5 ML OR 25MCG/0.25 ML DOSE 2022 229 complet ed [facility] TDAP 2022 [place] NYJOSE J LEFT DELTO ID [id number] 115 complet ed [facility] PNEUMOCOCCAL CONJUGATE PCV20, POLYSACCHARID E [id number] CONJUGATE, ADJUVANT, PF 2022 216 complet ed [facility] INFLUENZA, INJECTABLE, QUADRIVALENT, PRESERVATIVE FREE 2021 150 complet ed [facility] COVID-19 (MODERNA), MRNA, LNP-S, BIVALENT BOOSTER, PF, 50 MCG/0.5 ML OR 25MCG/0.25 ML DOSE 2021 229 complet ed [facility] ZOSTER RECOMBINANT 2 2021 187 complet ed [facility] COVID-19 (MODERNA), MRNA, LNP-S, PF, 100 MCG/0.5ML DOSE OR 50 MCG/0.25ML DOSE 4 2021 207 complet ed [facility] ZOSTER RECOMBINANT 1 2021 187 complet ed [facility] COVID-19 (MODERNA), MRNA, LNP-S, PF, 100 MCG OR 50 MCG DOSE 3 2020 207 complet ed [facility] COVID-19 (MODERNA), MRNA, LNP-S, PF, 100 MCG/0.5 ML DOSE 2 2020 207 complet ed [facility] COVID-19 (MODERNA), MRNA, LNP-S, PF, 100 MCG/0.5 ML DOSE 1 2020 207 complet ed [facility] TDAP 2008 115 complet ed [facility] Results Combined list of recent chemistry, hematology [...] Aug 04, 2023 01:06 PM Reporting Lab: [facility] [address] Performing Lab: [facility] [address] [place] [facility] COMPREHEN SIVE METABOLIC PANEL+MG UREA NITROGEN [MASS/VOLUM E] IN SERUM OR PLASMA 23 mg/dL 8 - 26 08/11 Specimen Type: PLASMA No comment entered. Ordering Provider: Zbigniew HERNANDEZ Report Released Date/Time: Aug 04, 2023 01:06 PM Reporting Lab: [facility] [phone] Performing Lab: [facility] [address] [place] [facility] COMPREHEN SIVE METABOLIC PANEL+MG GLUCOSE [MASS/VOLUM E] IN SERUM OR PLASMA 92 mg/dL 70 - 100 08/11 Specimen Type: PLASMA No comment entered. Ordering Provider: Zbigniew HERNANDEZ Report Released Date/Time: Aug 04, 2023 01:06 PM Reporting Lab: [facility] [address] Performing Lab: [facility] [address] [place] [facility] COMPREHEN SIVE METABOLIC PANEL+MG SODIUM [MOLES/VOLU ME] IN SERUM OR PLASMA 139 mmol/L 136 - 145 08/11 Specimen Type: PLASMA No comment entered. Ordering Provider: Zbigniew HERNANDEZ Report Released Date/Time: Aug 04, 2023 01:06 PM Reporting Lab: [facility] [address] Performing Lab: [facility] [address] [place] [facility] COMPREHEN SIVE METABOLIC PANEL+MG POTASSIUM [MOLES/VOLU ME] IN SERUM OR PLASMA 4.6 mmol/L 3.5 - 5.1 08/11 Specimen Type: PLASMA No comment entered. Ordering Provider: Zbigniew HERNANDEZ Report Released Date/Time: Aug 04, 2023 01:06 PM Reporting Lab: [facility] [address] Performing Lab: [facility] [address] [place] [facility] COMPREHEN SIVE METABOLIC PANEL+MG CHLORIDE [MOLES/VOLU ME] IN SERUM OR PLASMA 106 mmol/L 98 - 107 08/11 Specimen Type: PLASMA No comment entered. Ordering Provider: Zbigniew HERNANDEZ Report Released Date/Time: Aug 04, 2023 01:06 PM Reporting Lab: [facility] [address] Performing Lab: [facility] [address] [place] [facility] COMPREHEN SIVE METABOLIC PANEL+MG CARBON DIOXIDE, TOTAL [MOLES/VOLU ME] IN SERUM OR PLASMA 23 mmol/L 22 - 29 08/11 Specimen Type: PLASMA No comment entered. Ordering Provider: Zbigniew HERNANDEZ Report Released Date/Time: Aug 04, 2023 01:06 PM Reporting Lab: [facility] [address] Performing Lab: [facility] [address] [place] [facility] COMPREHEN SIVE METABOLIC PANEL+MG CALCIUM [MASS/VOLUM E] IN SERUM OR PLASMA 9.4 mg/dL 8.4 - 10.2 08/11 Specimen Type: PLASMA No comment entered. Ordering Provider: Zbigniew HERNANDEZ Report Released Date/Time: Aug 04, 2023 01:06 PM Reporting Lab: [facility] [address] Performing Lab: [facility] [address] [place] [facility] COMPREHEN SIVE METABOLIC PANEL+MG PROTEIN [MASS/VOLUM E] IN SERUM OR PLASMA 7.6 g/dL 6.0 - 8.3 08/11 Specimen Type: PLASMA No comment entered. Ordering Provider: Zbigniew HERNANDEZ Report Released Date/Time: Aug 04, 2023 01:06 PM Reporting Lab: [facility] [address] Performing Lab: [facility] [address] [place] [facility] COMPREHEN SIVE METABOLIC PANEL+MG ALBUMIN [MASS/VOLUM E] IN SERUM OR PLASMA 4.2 g/dL 3.5 - 5.2 08/11 Specimen Type: PLASMA No comment entered. Ordering Provider: Zbigniew HERNANDEZ Report Released Date/Time: Aug 04, 2023 01:06 PM Reporting Lab: [facility] [address] Performing Lab: [facility] [address] [place] [facility] COMPREHEN SIVE METABOLIC PANEL+MG BILIRUBIN.T OTAL [MASS/VOLUM E] IN SERUM OR PLASMA 0.9 mg/dL 0.2 - 1.2 08/11 Specimen Type: PLASMA No comment entered. Ordering Provider: Zbigniew HERNANDEZ Report Released Date/Time: Aug 04, 2023 01:06 PM Reporting Lab: [facility] [phone] Performing Lab: [facility] [address] [place] [facility] COMPREHEN SIVE METABOLIC PANEL+MG MAGNESIUM [MASS/VOLUM E] IN SERUM OR PLASMA 2.3 mg/dL 1.6 - 2.6 08/11 Specimen Type: PLASMA No comment entered. Ordering Provider: Zbigniew HERNANDEZ Report Released Date/Time: Aug 04, 2023 01:06 PM Reporting Lab: [facility] [address] Performing Lab: [facility] [address] [place] [facility] COMPREHEN SIVE METABOLIC PANEL+MG ANION GAP IN SERUM OR PLASMA 10 mmol/L 5 - 15 08/11 Specimen Type: PLASMA No comment entered. Ordering Provider: Zbigniew HERNANDEZ Report Released Date/Time: Aug 04, 2023 01:06 PM Reporting Lab: [facility] [address] Performing Lab: [facility] [address] [place] [facility] COMPREHEN SIVE METABOLIC PANEL+MG ALKALINE PHOSPHATASE [ENZYMATIC ACTIVITY/VO LUME] IN SERUM OR PLASMA 93 U/L 40 - 150 08/11 Specimen Type: PLASMA No comment entered. Ordering Provider: Zbigniew HERNANDEZ Report Released Date/Time: Aug 04, 2023 01:06 PM Reporting Lab: [facility] [address] Performing Lab: [facility] [address] [place] [facility] COMPREHEN SIVE METABOLIC PANEL+MG ALANINE AMINOTRANSF ERASE [ENZYMATIC ACTIVITY/VO LUME] IN SERUM OR PLASMA 36 U/L <55 - 55 08/11 Specimen Type: PLASMA No comment entered. Ordering Provider: Zbigniew HERNANDEZ Report Released Date/Time: Aug 04, 2023 01:06 PM Reporting Lab: [facility] [address] Performing Lab: [facility] [address] [place] [facility] COMPREHEN SIVE METABOLIC PANEL+MG ASPARTATE AMINOTRANSF ERASE [ENZYMATIC ACTIVITY/VO LUME] IN SERUM OR PLASMA 30 U/L <34 - 34 08/11 Specimen Type: PLASMA No comment entered. Ordering Provider: Zbigniew HERNANDEZ Report Released Date/Time: Aug 04, 2023 01:06 PM Reporting Lab: [facility] [address] Performing Lab: [facility] [address] [place] [facility] COMPREHEN SIVE METABOLIC PANEL+MG GLOMERULAR FILTRATION RATE/1.73 SQ M.PREDICTED [VOLUME RATE/AREA] IN SERUM, PLASMA OR BLOOD BY CREATININE- BASED FORMULA (CKD-EPI 2020) 66 60 08/11 Specimen Type: PLASMA No comment entered. Ordering Provider: Zbigniew HERNANDEZ Report Released Date/Time: Aug 04, 2023 01:06 PM Reporting Lab: [facility] [phone] Performing Lab: [facility] [address] [place] [facility] LIPID PANEL,NON -FASTING CHOLESTEROL [MASS/VOLUM E] IN SERUM OR PLASMA 156 mg/dL <199 - 199 08/11 Specimen Type: PLASMA No comment entered. Ordering Provider: Zbigniew HERNANDEZ Report Released Date/Time: Aug 04, 2023 01:06 PM Reporting Lab: [facility] [address] Performing Lab: [facility] [phone] [place] [facility] LIPID PANEL,NON -FASTING CHOLESTEROL IN HDL [MASS/VOLUM E] IN SERUM OR PLASMA 43 mg/dL 40 08/11 Specimen Type: PLASMA No comment entered. Ordering Provider: Zbigniew HERNANDEZ Report Released Date/Time: Aug 04, 2023 01:06 PM Reporting Lab: [facility] [address] Performing Lab: [facility] [address] [place] [facility] LIPID PANEL,NON -FASTING CHOLESTEROL IN LDL [MASS/VOLUM E] IN SERUM OR PLASMA BY CALCULATION 84 mg/dL <99 - 99 08/11 Specimen Type: PLASMA No comment entered. Ordering Provider: Zbigniew HERNANDEZ Report Released Date/Time: Aug 04, 2023 01:06 PM Reporting Lab: [facility] [address] Performing Lab: [facility] [address] [place] [facility] LIPID PANEL,NON -FASTING CHOLESTEROL IN VLDL [MASS/VOLUM E] IN SERUM OR PLASMA BY CALCULATION 29 mg/dL <29 - 29 08/11 Specimen Type: PLASMA No comment entered. Ordering Provider: Zbigniew HERNANDEZ Report Released Date/Time: Aug 04, 2023 01:06 PM Reporting Lab: [facility] [address] Performing Lab: [facility] [address] [place] [facility] LIPID PANEL,NON -FASTING CHOLESTEROL NON HDL [MASS/VOLUM E] IN SERUM OR PLASMA 113 mg/dL <129 - 129 08/11 Specimen Type: PLASMA No comment entered. Ordering Provider: Zbigniew HERNANDEZ Report Released Date/Time: Aug 04, 2023 01:06 PM Reporting Lab: [facility] [address] Performing Lab: [facility] [address] [place] [facility] LIPID PANEL,NON -FASTING TRIGLYCERID E [MASS/VOLUM E] IN SERUM OR PLASMA 144 mg/dL <149 - 149 08/11 Specimen Type: PLASMA No comment entered. Ordering Provider: Zbigniew HERNANDEZ Report Released Date/Time: Aug 04, 2023 01:06 PM Reporting Lab: [facility] [address] Performing Lab: [facility] [address] [place] [facility] Vital Signs Combined list of inpatient and outpatient Vital Signs from Department of Defense and Veterans Affairs, ranging from 12 months to all on record, depending upon the facility. Vital Sign Value Date Comments Source SYSTOLIC BLOOD PRESSURE 143 08/11/2023 13:39:02 [facility] DIASTOLIC BLOOD PRESSURE 72 08/11/2023 13:39:02 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 2) Encounters from the Department of [employer] facilities going back up to 280 months. Location Location Details Encounter Type Encounter Number Reason For Visit Attending Provider ADM Date DC Date Status [facility] Outpatient Encounter [id number] 02/18 [facility] [place] [facility] Outpatient Encounter [id number] 04/27 [facility] [place] [facility] Outpatient Encounter [id number] 06/29 [facility] [place] [facility] Outpatient Encounter [id number] 08/11 [facility] [place] [facility] OFFICE O/P EST LOW 20 MIN [id number] Diagnos is: ICD-10- CM E78.5 Hyperli pidemia , unspeci fied
JEANINE HERNANDEZ 08/11 [facility] [place] [facility] Outpatient Encounter [id number] Rosas NUNEZ 01/31 [facility] Social History Combined list of available smoking, tobacco, and other social history from Department of Defense and Veterans Affairs facilities. Social History Type Response Date Comment Sour e Tobacco smoking status FLIS [facility] NEVER USED 08/11/2023 [facility] History of tobacco use VA-TOBACCO NEVER USED 07/02/2022 [facility] History of tobacco use VA-TOBACCO NEVER USED 08/08/2021 [facility]
--- OUTSIDE RECORDS SUMMARY | 2024-07-21 12:57 | XMS_ITS | Continuity of Care Document ---
Author Name [facility] Organization [facility] Care Team Providers Care Senior Business Objects Developer Name Role Phone [facility] Unavailable Unavailable Problems Combined list of problems from Department [facility] and [facility] facilities. It does not include entries that were removed or entered in error. Problem Status Onset Date Problem Type Date of Resolution Comments Source Hyperlipidemia ([facility] [id number]) Active Condition [facility] Obesity Active Condition [facility] Diagnosis: ICD-10-CM E78.5 Hyperlipidemia, unspecified Active Diagnosis [facility] Medications Combined list of outpatient medications from [facility] and [facility] facilities.Medications provided include 1) outpatient medications from the last 15 months, and 2) patient-reported medications. Medication Details Route Status Patient Instructions Prescription Expires Prescription Number Last Dispense Date Ordering Provider Order Date Order Qty Source SIMVASTATIN 40MG TAB TAKE ONE TABLET BY MOUTH AT BEDTIME FOR CHOLESTE ROL ORAL ACTIVE 12/01/2024 [id number] JEANINE HERNANDEZ 2023 90 [facility] SIMVASTATIN 40MG TAB TAKE ONE TABLET BY MOUTH AT BEDTIME FOR CHOLESTE ROL ORAL DISCONT INUED 11/19/2023 [id number] JEANINE HERNANDEZ 2022 90 [facility] Immunizations Combined list of available immunizations from the [facility] and [facility] facilities. Immunization Series Date Given Administered By Site Reaction Lot Number CVX Code Drug Hand Inserter Operator Status Comments Source COVID-19 (MODERNA), MRNA, LNP-S, PF, 50 MCG/0.5 ML (AGES 12+ YEARS) 2022 312 complet ed [facility] INFLUENZA, HIGH-DOSE, QUADRIVALENT 2022 197 complet ed [facility] COVID-19 (MODERNA), MRNA, LNP-S, BIVALENT, PF, 50 MCG/0.5 ML OR 25MCG/0.25 ML DOSE 2022 229 complet ed [facility] TDAP 2022 [place] NYJOSE J LEFT DELTO ID [id number] 115 complet ed [facility] PNEUMOCOCCAL CONJUGATE PCV20, POLYSACCHARID E [id number] CONJUGATE, ADJUVANT, PF 2022 216 complet ed [facility] INFLUENZA, INJECTABLE, QUADRIVALENT, PRESERVATIVE FREE 2021 150 complet ed [facility] COVID-19 (MODERNA), MRNA, LNP-S, BIVALENT BOOSTER, PF, 50 MCG/0.5 ML OR 25MCG/0.25 ML DOSE 2021 229 complet ed [facility] ZOSTER RECOMBINANT 2 2021 187 complet ed [facility] COVID-19 (MODERNA), MRNA, LNP-S, PF, 100 MCG/0.5ML DOSE OR 50 MCG/0.25ML DOSE 4 2021 207 complet ed [facility] ZOSTER RECOMBINANT 1 2021 187 complet ed [facility] COVID-19 (MODERNA), MRNA, LNP-S, PF, 100 MCG OR 50 MCG DOSE 3 2020 207 complet ed [facility] COVID-19 (MODERNA), MRNA, LNP-S, PF, 100 MCG/0.5 ML DOSE 2 2020 207 complet ed [facility] COVID-19 (MODERNA), MRNA, LNP-S, PF, 100 MCG/0.5 ML DOSE 1 2020 207 complet ed [facility] TDAP 2008 115 complet ed [facility] Results Combined list of recent chemistry, [...] 04, 2023 01:06 PM Reporting Lab: [facility] [address] Performing Lab: [facility] [address] [place] [facility] COMPREHEN SIVE METABOLIC PANEL+MG UREA NITROGEN [MASS/VOLUM E] IN SERUM OR PLASMA 23 mg/dL 8 - 26 08/11 Specimen Type: PLASMA No comment entered. Ordering Provider: Zbigniew HERNANDEZ Report Released Date/Time: Aug 04, 2023 01:06 PM Reporting Lab: [facility] [address] Performing Lab: [facility] [address] [place] [facility] COMPREHEN SIVE METABOLIC PANEL+MG GLUCOSE [MASS/VOLUM E] IN SERUM OR PLASMA 92 mg/dL 70 - 100 08/11 Specimen Type: PLASMA No comment entered. Ordering Provider: Zbigniew HERNANDEZ Report Released Date/Time: Aug 04, 2023 01:06 PM Reporting Lab: [facility] [address] Performing Lab: [facility] [address] [place] [facility] COMPREHEN SIVE METABOLIC PANEL+MG SODIUM [MOLES/VOLU ME] IN SERUM OR PLASMA 139 mmol/L 136 - 145 08/11 Specimen Type: PLASMA No comment entered. Ordering Provider: Zbigniew HERNANDEZ Report Released Date/Time: Aug 04, 2023 01:06 PM Reporting Lab: [facility] [address] Performing Lab: [facility] [address] [place] [facility] COMPREHEN SIVE METABOLIC PANEL+MG POTASSIUM [MOLES/VOLU ME] IN SERUM OR PLASMA 4.6 mmol/L 3.5 - 5.1 08/11 Specimen Type: PLASMA No comment entered. Ordering Provider: Zbigniew HERNANDEZ Report Released Date/Time: Aug 04, 2023 01:06 PM Reporting Lab: [facility] [address] Performing Lab: [facility] [address] [place] [facility] COMPREHEN SIVE METABOLIC PANEL+MG CHLORIDE [MOLES/VOLU ME] IN SERUM OR PLASMA 106 mmol/L 98 - 107 08/11 Specimen Type: PLASMA No comment entered. Ordering Provider: Zbigniew HERNANDEZ Report Released Date/Time: Aug 04, 2023 01:06 PM Reporting Lab: [facility] [address] Performing Lab: [facility] [address] [place] [facility] COMPREHEN SIVE METABOLIC PANEL+MG CARBON DIOXIDE, TOTAL [MOLES/VOLU ME] IN SERUM OR PLASMA 23 mmol/L 22 - 29 08/11 Specimen Type: PLASMA No comment entered. Ordering Provider: Zbigniew HERNANDEZ Report Released Date/Time: Aug 04, 2023 01:06 PM Reporting Lab: [facility] [address] Performing Lab: [facility] [address] [place] [facility] COMPREHEN SIVE METABOLIC PANEL+MG CALCIUM [MASS/VOLUM E] IN SERUM OR PLASMA 9.4 mg/dL 8.4 - 10.2 08/11 Specimen Type: PLASMA No comment entered. Ordering Provider: Zbigniew HERNANDEZ Report Released Date/Time: Aug 04, 2023 01:06 PM Reporting Lab: [facility] [address] Performing Lab: [facility] [address] [place] [facility] COMPREHEN SIVE METABOLIC PANEL+MG PROTEIN [MASS/VOLUM E] IN SERUM OR PLASMA 7.6 g/dL 6.0 - 8.3 08/11 Specimen Type: PLASMA No comment entered. Ordering Provider: Zbigniew HERNANDEZ Report Released Date/Time: Aug 04, 2023 01:06 PM Reporting Lab: [facility] [address] Performing Lab: [facility] [address] [place] [facility] COMPREHEN SIVE METABOLIC PANEL+MG ALBUMIN [MASS/VOLUM E] IN SERUM OR PLASMA 4.2 g/dL 3.5 - 5.2 08/11 Specimen Type: PLASMA No comment entered. Ordering Provider: Zbigniew HERNANDEZ Report Released Date/Time: Aug 04, 2023 01:06 PM Reporting Lab: [facility] [address] Performing Lab: [facility] [address] [place] [facility] COMPREHEN SIVE METABOLIC PANEL+MG BILIRUBIN.T OTAL [MASS/VOLUM E] IN SERUM OR PLASMA 0.9 mg/dL 0.2 - 1.2 08/11 Specimen Type: PLASMA No comment entered. Ordering Provider: Zbigniew HERNANDEZ Report Released Date/Time: Aug 04, 2023 01:06 PM Reporting Lab: [facility] [address] Performing Lab: [facility] [address] [place] [facility] COMPREHEN SIVE METABOLIC PANEL+MG MAGNESIUM [MASS/VOLUM E] IN SERUM OR PLASMA 2.3 mg/dL 1.6 - 2.6 08/11 Specimen Type: PLASMA No comment entered. Ordering Provider: Zbigniew HERNANDEZ Report Released Date/Time: Aug 04, 2023 01:06 PM Reporting Lab: [facility] [address] Performing Lab: [facility] [address] [place] [facility] COMPREHEN SIVE METABOLIC PANEL+MG ANION GAP IN SERUM OR PLASMA 10 mmol/L 5 - 15 08/11 Specimen Type: PLASMA No comment entered. Ordering Provider: Zbigniew HERNANDEZ Report Released Date/Time: Aug 04, 2023 01:06 PM Reporting Lab: [facility] [address] Performing Lab: [facility] [address] [place] [facility] COMPREHEN SIVE METABOLIC PANEL+MG ALKALINE PHOSPHATASE [ENZYMATIC ACTIVITY/VO LUME] IN SERUM OR PLASMA 93 U/L 40 - 150 08/11 Specimen Type: PLASMA No comment entered. Ordering Provider: Zbigniew HERNANDEZ Report Released Date/Time: Aug 04, 2023 01:06 PM Reporting Lab: [facility] [address] Performing Lab: [facility] [address] [place] [facility] COMPREHEN SIVE METABOLIC PANEL+MG ALANINE AMINOTRANSF ERASE [ENZYMATIC ACTIVITY/VO LUME] IN SERUM OR PLASMA 36 U/L <55 - 55 08/11 Specimen Type: PLASMA No comment entered. Ordering Provider: Zbigniew HERNANDEZ Report Released Date/Time: Aug 04, 2023 01:06 PM Reporting Lab: [facility] [address] Performing Lab: [facility] [address] [place] [facility] COMPREHEN SIVE METABOLIC PANEL+MG ASPARTATE AMINOTRANSF ERASE [ENZYMATIC ACTIVITY/VO LUME] IN SERUM OR PLASMA 30 U/L <34 - 34 08/11 Specimen Type: PLASMA No comment entered. Ordering Provider: Zbigniew HERNANDEZ Report Released Date/Time: Aug 04, 2023 01:06 PM Reporting Lab: [facility] [address] Performing Lab: [facility] [address] [place] [facility] COMPREHEN SIVE METABOLIC PANEL+MG GLOMERULAR FILTRATION RATE/1.73 SQ M.PREDICTED [VOLUME RATE/AREA] IN SERUM, PLASMA OR BLOOD BY CREATININE- BASED FORMULA (CKD-EPI 2020) 66 60 08/11 Specimen Type: PLASMA No comment entered. Ordering Provider: Zbigniew HERNANDEZ Report Released Date/Time: Aug 04, 2023 01:06 PM Reporting Lab: [facility] [address] Performing Lab: [facility] [address] [place] [facility] LIPID PANEL,NON -FASTING CHOLESTEROL [MASS/VOLUM E] IN SERUM OR PLASMA 156 mg/dL <199 - 199 08/11 Specimen Type: PLASMA No comment entered. Ordering Provider: Zbigniew HERNANDEZ Report Released Date/Time: Aug 04, 2023 01:06 PM Reporting Lab: [facility] [address] Performing Lab: [facility] [address] [place] [facility] LIPID PANEL,NON -FASTING CHOLESTEROL IN HDL [MASS/VOLUM E] IN SERUM OR PLASMA 43 mg/dL 40 08/11 Specimen Type: PLASMA No comment entered. Ordering Provider: Zbigniew HERNANDEZ Report Released Date/Time: Aug 04, 2023 01:06 PM Reporting Lab: [facility] [address] Performing Lab: [facility] [address] [place] [facility] LIPID PANEL,NON -FASTING CHOLESTEROL IN LDL [MASS/VOLUM E] IN SERUM OR PLASMA BY CALCULATION 84 mg/dL <99 - 99 08/11 Specimen Type: PLASMA No comment entered. Ordering Provider: Zbigniew HERNANDEZ Report Released Date/Time: Aug 04, 2023 01:06 PM Reporting Lab: [facility] [address] Performing Lab: [facility] [address] [place] [facility] LIPID PANEL,NON -FASTING CHOLESTEROL IN VLDL [MASS/VOLUM E] IN SERUM OR PLASMA BY CALCULATION 29 mg/dL <29 - 29 08/11 Specimen Type: PLASMA No comment entered. Ordering Provider: Zbigniew HERNANDEZ Report Released Date/Time: Aug 04, 2023 01:06 PM Reporting Lab: [facility] [address] Performing Lab: [facility] [address] [place] [facility] LIPID PANEL,NON -FASTING CHOLESTEROL NON HDL [MASS/VOLUM E] IN SERUM OR PLASMA 113 mg/dL <129 - 129 08/11 Specimen Type: PLASMA No comment entered. Ordering Provider: Zbigniew HERNANDEZ Report Released Date/Time: Aug 04, 2023 01:06 PM Reporting Lab: [facility] [address] Performing Lab: [facility] [address] [place] [facility] LIPID PANEL,NON -FASTING TRIGLYCERID E [MASS/VOLUM E] IN SERUM OR PLASMA 144 mg/dL <149 - 149 08/11 Specimen Type: PLASMA No comment entered. Ordering Provider: Zbigniew HERNANDEZ Report Released Date/Time: Aug 04, 2023 01:06 PM Reporting Lab: [facility] [address] Performing Lab: 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 Vital Sign Value Date Comments Source SYSTOLIC BLOOD PRESSURE 143 08/11/2023 13:39:02 [facility] DIASTOLIC BLOOD PRESSURE 72 08/11/2023 13:39:02 [facility] PULSE OXIMETRY 95% 08/11/2023 13:39:02 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 2) Encounters from the Department of [place] [employer] facilities going back up to 280 months. Location Location Details Encounter Type Encounter Number Reason For Visit Attending Provider ADM Date DC Date Status Disposition Source [facility] Outpatient Encounter [id number] 02/18 [facility] [place] [facility] Outpatient Encounter [id number] 04/27 [facility] [place] [facility] Outpatient Encounter [id number] 06/29 [facility] [place] [facility] Outpatient Encounter [id number] 08/11 [facility] [place] [facility] OFFICE O/P EST LOW 20 MIN [id number] Diagnos is: ICD-10- CM E78.5 Hyperli pidemia , unspeci fied
JEANINE HERNANDEZ 08/11 [facility] [place] [facility] Outpatient Encounter [id number] Rosas NUNEZ 01/31 [facility] Social History Combined list of available smoking, tobacco, and other social history from Department of Defense and Veterans Affairs facilities. Social History Type Response Date Comment Sour e Tobacco smoking status IDIS VA-TOBACCO NEVER USED 08/11/2023 [facility] History of tobacco use VA-TOBACCO NEVER USED 07/02/2022 [facility] History of tobacco use VA-TOBACCO NEVER USED 08/08/2021 [facility]
--- OUTSIDE RECORDS SUMMARY | 2024-07-21 12:58 | XMS_ITS | Clinical Summary ---
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 Gender Identity Not on file Sexual Orientation Not on file Occupation Industry Job Start Date Job End Date [employer] Not on file Not on file Not on aust[place] e Obstetrics History Last Filed Vital Signs Vital [...] Hepatitis C screening for age 18-79 1973 Pneumococcal series for age 50+ (1 of 1 - PCV) 2005 Zoster (shingles) series for age 50+ (1 of 2) 2005 Lipids for age 45-75 03/04/2018 03/04/2013, 01/24/20 09 Tetanus booster 12/25/2018 12/25/2008, 11/23/1998 Colonoscopy through age 75 04/19/2023 04/19/2013, COVID-19 vaccine series ( - 2023-25 season) 2024 Influenza for age 65+ 03/20/2024 RSV vaccine for adults or pr egnancy (1 - 1-dose 75+ series) 2030 Tdap Completed 12/25/2008 Procedures Procedure Name Priority Date/Time Associated Diagnosis Comments LIPID PANEL W REFLEX MEASURED LDL Routine 03/04/2013 9:10 AM CDT Screening for ischemic heart disease from Last 3 Months or Most Recently Relevant to Health Maintenance Results * (ABNORMAL) LIPID PANEL W REFLEX MEASURED LDL (03/04/2013 9:10 AM CDT) [facility] Signature CHOLESTEROL,TOTAL 220(H) 100 - 199 mg/dL 03/04/2013 9:[address] [facility] TRIGLYCERIDES 106 <150 mg/dL 03/04/2013 9:[address] [facility] HDL CHOLESTEROL 43 >40 mg/dL 3 9:[address] [facility] NON-HDL CHOLESTEROL 177(H) <145 mg/dl 03/04/2013 9:[address] [facility] CHOL/HDL RATIO 5.12(H) <4.50 03/04/2013 9:[address] [facility] LDL CHOLESTEROL 156(H) <=130 mg/dL 03/04/2013 9:[address] [facility] PATIENT STATUS FASTING 03/04/2013 9:[address] [facility] Blood specimen (specimen) BLOOD SPECIMEN / Unknown Venipuncture / Unknown 03/04/2013 9:10 AM CDT 03/04/2013 9:15 AM CDT us Micah Reid MD CHEMISTRY Final Resu lt [facility] [address] [place] [address] from Last 3 Months or Most Recently Relevant to Health Maintenance Insurance [facility] Care Teams Service Delivery Management Consultant Relationship Specialty Start Date End Date Pcp, No . PCP - General 12/10/20
== END 2024-09-22 13:23 | disposition home or self-care (01) ==
PROVIDERS: PCP Family Medicine; Visit Provider Physician Assistant Surgical
DX: M16.11 Unilateral primary osteoarthritis, right hip (principal); Z96.641 Presence of right artificial hip joint; M25.551 Pain in right hip; M25.651 Stiffness of right hip, not elsewhere classified; M62.81 Muscle weakness (generalized); R26.2 Difficulty in walking, not elsewhere classified; Z51.89 Encounter for other specified aftercare
CPT/HCPCS: 97110; 97161; 97530; 97535